=== PATIENT | male | born 1945 | race Caucasian/White ===

== ENCOUNTER 2017-09-17 12:23 | Emergency (ER) | payer MEDICARE, OTHER ==
[~2017-09-17] VITALS: Ht 182.9 cm; Wt 67.0 kg
[~2017-09-17 12:23] MED LIST: HYDR-3533 PO; PROT40TA PO; TAB-TAB PO
[2017-09-17 12:28] VITALS: BP 119/69; PULSE 84; RESP 18; TEMP 97; O2SAT 96
[2017-09-17] MEDS ORDERED: SODIUM CHLOR 0.9% 1000 ML INJ 1,000 ML IV ONE (13:30)
--- NOTE | 2017-09-17 13:34 | PD ---
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 He has a history of rectal cancer. He had a diverting ileostomy at one time. He has had several surgeries with Dr. Calle. He has had radiation and chemo prior to the surgery in February or March 2014. In December 2014 he had surgery with Dr. Calle and had a ileostomy in place. In March 2015 he had closure of the ileostomy and placement of a tube gastrostomy. At the time of that surgery was thought he might of had a bowel obstruction. The tube gastrostomy has been in place since then. He was supposed to be removed about 3 weeks after the surgery with the patient says he had decided not to have further care. He has had the tube in place since then. He says that this morning about a foot of the tube broke off. Initially there was a small amount of white fluid that came out. Since then there have been 2 or 3 episodes of brownish fluid coming out which has been more forceful. He says he is feeling weak. PFSH Past Medical History Hx Anticoagulant Therapy: No Cancer: Yes (RECTAL) Cardiovascular Problems: No Chemotherapy: Yes (FEB 2014) Cerebrovascular Accident: No Diabetes: No Diminished Hearing: No Endocrine: No Gastrointestinal Disorders: Yes (REFLUX AT NIGHT) Genitourinary: No Hepatitis: No Hiatal Hernia: No Immune Disorder: No Medical other: Yes (right inguinal hernia) Musculoskeletal: No Neurologic: No Psychiatric: No Reproductive: No Respiratory: No Immunizations Current: No Radiation Therapy: Yes (STOPPED MAR 2014) Thyroid Disease: No Influenza Vaccination: No Past Surgical History Abdominal Surgery: Yes (ILEOSTOMY DECEMBER 2014) AICD: No Cardiac Surgery: No Ear Surgery: No Endocrine Surgery: No Eye Surgery: No Genitourinary Surgery: No Gynecologic Surgery: No Joint Replacement: No Oral Surgery: No Pacemaker: No Thoracic Surgery: No Social History Alcohol Use: Yes (OCCASIONAL) Tobacco Use: No (quit in 1997) Substance Use: No Allergies-Medications (Allergen,Severity, Reaction): Coded Allergies: acetaminophen (Unverified Allergy, Severe, 09/17/17) hydrocodone (Unverified Allergy, Severe, Rash, 09/17/17) *MDRO Multi-Drug Resistant Organism (Verified Adverse Reaction, Unknown, ) MRSA PCR Screen positive 12/29/14. Reported Meds & Prescriptions Reported Meds & Active Scripts Active No Active Prescriptions or Reported Medications Review of Systems General / Constitutional: No: Fever, Chills Eyes: No: Diploplia, Blurred Vision HENT: No: Headaches, Vertigo Cardiovascular: No: Chest Pain or Discomfort, Palpitations Respiratory: No: Cough, Shortness of Breath Gastrointestinal: No: Nausea, Vomiting Skin: No Rash, No Itching Neurologic: Positive: Weakness Endocrine: No: Heat Intolerance Hematologic/Lymphatic: No: Easy Bruising Physical Exam Narrative GENERAL: Thin male SKIN: Focused skin assessment warm/dry. HEAD: Atraumatic. Normocephalic. EYES: Pupils equal and round. No scleral icterus. No injection or drainage. ENT: No nasal bleeding or discharge. Mucous membranes pink and moist. NECK: Trachea midline. No JVD. CARDIOVASCULAR: Regular rate and rhythm. No murmur appreciated. RESPIRATORY: No accessory muscle use. Clear to auscultation. Breath sounds equal bilaterally. GASTROINTESTINAL: Abdomen soft, non-tender, nondistended. There is a brown circular to coming out of the left midabdomen. There is some brownish material at the base small amount of brownish material coming up the end of the tube hepatic and splenic margins not palpable. MUSCULOSKELETAL: No obvious deformities. No clubbing. No cyanosis. No edema. NEUROLOGICAL: Awake and alert. No obvious cranial nerve deficits. Motor grossly within normal limits. Normal speech. PSYCHIATRIC: Appropriate mood and affect; insight and judgment normal. Data Data Last Documented VS Vital Signs Date Time Temp Pulse Resp B/P (MAP) Pulse Ox O2 Delivery O2 Flow Rate FiO2 09/17/17 12:28 97.0 84 18 119/69 (86) 96 Orders Orders Complete Blood Count With Diff (09/17/17 13:27) Comprehensive Metabolic Panel (09/17/17 13:27) Sodium Chlor 0.9% 1000 Ml Inj (Ns 1000 M (09/17/17 13:30) Labs Laboratory Tests Test 09/17/17 13:45 White Blood Count 3.4 TH/MM3 Red Blood Count 4.36 MIL/MM3 Hemoglobin 12.7 GM/DL Hematocrit 38.9 % Mean Corpuscular Volume 89.2 FL Mean Corpuscular Hemoglobin 29.1 PG Mean Corpuscular Hemoglobin Concent 32.6 % Red Cell Distribution Width 14.2 % Platelet Count 186 TH/MM3 Mean Platelet Volume 8.4 FL Neutrophils (%) (Auto) 59.7 % Lymphocytes (%) (Auto) 17.3 % Monocytes (%) (Auto) 15.7 % Eosinophils (%) (Auto) 4.9 % Basophils (%) (Auto) 2.4 % Neutrophils # (Auto) 2.0 TH/MM3 Lymphocytes # (Auto) 0.6 TH/MM3 Monocytes # (Auto) 0.5 TH/MM3 Eosinophils # (Auto) 0.2 TH/MM3 Basophils # (Auto) 0.1 TH/MM3 CBC Comment DIFF FINAL Differential Comment Blood Urea Nitrogen 12 MG/DL Creatinine 0.87 MG/DL Random Glucose 113 MG/DL Total Protein 8.9 GM/DL Albumin 3.6 GM/DL Calcium Level 9.1 MG/DL Alkaline Phosphatase 75 U/L Aspartate Amino Transf (AST/SGOT) 28 U/L Alanine Aminotransferase (ALT/SGPT) 14 U/L Total Bilirubin 0.7 MG/DL Sodium Level 140 MEQ/L Potassium Level 4.0 MEQ/L Chloride Level 106 MEQ/L Carbon Dioxide Level 25.8 MEQ/L Anion Gap 8 MEQ/L Estimat Glomerular Filtration Rate 87 ML/MIN MDM Medical Decision Making Medical Screen Exam Complete: Yes Emergency Medical Condition: Yes Medical Record Reviewed: Yes Differential Diagnosis Differential includes fracture gastrostomy tube, dehydration, rectal cancer Narrative Course I discussed the case with Dr. Calle who has been the patient's physician though the patient has not been compliant has not has not seen HIM for several years. He recommends removing the tube as it is not being used. The tube was removed with traction. It did not require much force and the tube came out easily. Skin site will be bandaged. We did check lab work and gave him a liter of fluid. He is stable for discharge. Dr. Calle has indicated he would like to follow-up with the patient and I have advised the patient of this. Diagnosis Primary Impression: Attention to gastrostomy tube Scripts No Active Prescriptions or Reported Meds Disposition: 01 DISCHARGE HOME Condition: Stable Tank Maciel MD September 17, 2017 13:34
[2017-09-17 13:51] LABS: BASOPHIL # 0.1 TH/MM3 (0-0.2); BASOPHIL % 2.4 % (0.0-2.0); EOSINOPHIL # 0.2 TH/MM3 (0-0.4); EOSINOPHIL % 4.9 % (0.0-4.0); HEMATOCRIT 38.9 % (39.0-51.0); HEMOGLOBIN 12.7 GM/DL (13.0-17.0); LYMPH % 17.3 % (9.0-44.0); LYMPHOCYTE # 0.6 TH/MM3 (1.0-4.8); MEAN CELL VOLUME 89.2 FL (80.0-100.0); MEAN CORPUSCULAR HEMOGLOBIN 29.1 PG (27.0-34.0); MEAN CORPUSCULAR HGB CONC 32.6 % (32.0-36.0); MEAN PLATELET VOLUME 8.4 FL (7.0-11.0); MONO % 15.7 % (0.0-8.0); MONOCYTE # 0.5 TH/MM3 (0-0.9); NEUT % 59.7 % (16.0-70.0); PLATELET COUNT 186 TH/MM3 (150-450); RED BLOOD COUNT 4.36 MIL/MM3 (4.50-5.90); RED CELL DISTRIBUTION WIDTH 14.2 % (11.6-17.2); WHITE BLOOD COUNT 3.4 TH/MM3 (4.0-11.0)
[2017-09-17 14:00] LABS: CHLORIDE 106 MEQ/L (98-107); SODIUM (NA) 140 MEQ/L (136-145)
[2017-09-17 14:04] LABS: CALCIUM 9.1 MG/DL (8.5-10.1)
[2017-09-17 14:05] LABS: ALBUMIN 3.6 GM/DL (3.4-5.0); BICARBONATE 25.8 MEQ/L (21.0-32.0); BLOOD UREA NITROGEN 12 MG/DL (7-18); GLUCOSE,RANDOM 113 MG/DL (74-106)
[2017-09-17 14:08] LABS: ALT (GPT) 14 U/L (12-78); AST (GOT) 28 U/L (15-37); CREATININE 0.87 MG/DL (0.60-1.30); GLOMERULAR FILTRATION RATE 87 ML/MIN (>89)
[2017-09-17 14:09] LABS: TOTAL BILIRUBIN ADULT 0.7 MG/DL (0.2-1.0); TOTAL PROTEIN 8.9 GM/DL (6.4-8.2)
[2017-09-17 14:11] LABS: ALKALINE PHOSPHATASE 75 U/L (45-117)
[2017-09-17] MEDS ORDERED: PERM5CRE11 TOPICAL (14:53)
== END 2017-09-17 15:09 | disposition home or self-care (01) ==
LOC: PHED 12:23
DX: Z43.1 Encounter for attention to gastrostomy (principal); K21.9 Gastro-esophageal reflux disease without esophagitis; K40.90 Unilateral inguinal hernia, without obstruction or gangrene, not specified as recurrent; Z85.048 Personal history of other malignant neoplasm of rectum, rectosigmoid junction, and anus; Z87.891 Personal history of nicotine dependence; Z91.19 Patient's noncompliance with other medical treatment and regimen
CPT/HCPCS: 80053; 85025; 96360; 99283; J7030

== ENCOUNTER 2018-02-09 16:38 | Inpatient (IN) ==
[2018-02-09] MEDS ORDERED: Morphine Sulfate Inj 2 MG/ML Vial IV.PUSH ONE (17:21)
[2018-02-09] MEDS ORDERED: Sod Chloride 0.9% Inj 1,000 ML IV.SIG ONE (17:21)
--- NOTE | 2018-02-09 17:29 | ED ---
HPI General Chief complaint: Abdominal Pain Stated complaint: abd pain/diarrhea Time Seen by Provider: 02/09/18 17:09 Source: patient Mode of arrival: ambulatory Limitations: no limitations History of Present Illness HPI Narrative: Patient is a 72-year-old male who presents to the emergency department for nausea, vomiting, diarrhea, and intermittent abdominal pain. The patient states his symptoms started on Friday with nausea and vomiting. The patient then developed abdominal distention, abdominal cramping, and diarrhea. The patient describes diarrhea as loose, watery, brown, without any visible blood. The patient does have a history of similar symptoms when he was undergoing chemotherapy and radiation therapy for rectal cancer. The patient does have a history of large abdominal surgery for removal of part of the rectum and colostomy which has subsequently been reversed. The patient also states he had a feeding tube placed at that time which was removed earlier this year. The patient states the fistula is currently healing. He does note some subjective chills and fever. He does complain of mild nausea, last episode of vomiting was yesterday. The abdominal pain is intermittent, crampy, and associated with a bowel movement. The patient denies any associated chest pain or shortness of breath. MD complaint: nausea, vomiting, diarrhea and abdominal pain Onset (ago): day(s) Description of Vomiting: watery Description of Diarrhea: watery Associated Abdominal Pain: Yes Location of pain: diffuse Radiation: diffuse Severity: moderate Severity scale (1-10): 4 Quality: cramping Pain Consistency: intermittent Relieving factors: none Exacerbating factors: bowel movement Associated symptoms: loss of appetite, nausea/vomiting and bloating Related Data Home Medications Medication Instructions Recorded Confirmed No Known Home Medications 02/09/18 02/09/18 Allergies Allergy/AdvReac Type Severity Reaction Status Date / Time acetaminophen Allergy Severe Rash Verified 02/09/18 16:54 hydrocodone Allergy Severe Rash Verified 02/09/18 16:54 *MDRO Multi-Drug Resistant AdvReac Unknown Agitation Uncoded 02/09/18 16:54 Organism Review of Systems ROS: all other systems reviewed are negative PMFSH Social History Social History Substance History: No History of Abuse Second Hand Smoke Exposure: No Smoking Status: Former smoker How Often Do You Have a Drink Containing Alcohol: 2 to 4 times a month Recent Travel in [facility] within the Last 8 Weeks: No Recent Out of Country Travel within the Last 8 Weeks: No Immunization History Tetanus Immunization: Unsure Hx Influenza Vaccine This Season: No Exam Narrative Exam Narrative: GENERAL: Awake, alert, pleasant 72-year-old male who appears his stated age and is in no acute respiratory distress. SKIN: Focused skin assessment warm/dry. HEAD: Atraumatic. Normocephalic. EYES: Pupils equal and round. No scleral icterus. No injection or drainage. ENT: No nasal bleeding or discharge. Slightly dry mucous membranes. NECK: Trachea midline. No JVD. CARDIOVASCULAR: Regular rate and rhythm. No murmur appreciated. RESPIRATORY: No accessory muscle use. Clear to auscultation. Breath sounds equal bilaterally. GASTROINTESTINAL: Abdomen reveals a slightly distended abdomen with a well- healed transverse incisional scar. Fistula in the upper aspect of the abdomen which is closing, no obvious drainage. Mild tenderness, no rebound tenderness. MUSCULOSKELETAL: No obvious deformities. No clubbing. No cyanosis. No edema. NEUROLOGICAL: Awake and alert. No obvious cranial nerve deficits. Motor grossly within normal limits. Normal speech. PSYCHIATRIC: Appropriate mood and affect; insight and judgment normal. Course Initial Documented Vital Signs Temperature 98.0 F 02/09/18 16:54 Pulse Rate 79 02/09/18 16:54 Respiratory Rate 18 02/09/18 16:54 Blood Pressure 115/77 02/09/18 16:54 Pulse Oximetry 98 02/09/18 16:54 Last Documented Vital Signs Temperature 98.0 F 02/09/18 16:54 Pulse Rate 67 02/09/18 21:50 Respiratory Rate 18 02/09/18 21:50 Blood Pressure 118/68 02/09/18 21:50 Pulse Oximetry 99 02/09/18 21:50 Medical Decision Making [facility] Narrative Medical decision making narrative: IV was established, labs are drawn and sent, and the patient was placed on cardiac telemetry monitoring and continuous pulse oximetry monitoring. The patient was administered morphine, Zofran, Bentyl, and IV fluids. C. difficile PCR from stool was ordered. CT of the abdomen and pelvis with IV and oral contrast was ordered. Follow-up of pending labs and CT and patient disposition CT abdomen and pelvis shows bowel obstruction with dilated intestine to the area of anastomosis. Patient's abdomen is firm and distended but minimally tender to direct palpation. Patient's case discussed with on-call colorectal surgeon for Dr. Calle who is the patient's colorectal surgeon. Per Dr. Lopez would like patient transferred to [facility] is aware patient is having NG tube placed like patient on maintenance fluids at 150 cc an hour Medical Screen Exam Complete: Yes Emergency Medical Condition: Yes Differential Diagnosis Differential Diagnosis: Differential diagnosis includes colitis, gastritis, enteritis, C. difficile, dehydration, electrolyte abnormality, chronic pancreatitis, viral syndrome. Medical Records Medical records reviewed: Yes I reviewed the patient's medical records. Lab Data Lab results reviewed: Yes I reviewed the patient's lab results. Result diagrams: 02/09/18 17:34 02/09/18 17:34 Lab Results 02/09/18 02/09/18 Range/Units 17:34 17:34 CBC w Diff Auto diff final WBC 7.9 (4.0-11.0) th/mm3 RBC 4.10 L (4.50-5.90) mil/mm3 Hgb 12.6 L (13.0-17.0) gm/dL Hct 37.3 L (39.0-51.0) % MCV 90.9 (80.0-100.0) fL MCH 30.8 (27.0-34.0) pg MCHC 33.9 (32.0-36.0) % RDW 15.5 (11.6-17.2) % Plt Count 313 (150-450) th/mm3 MPV 8.6 (7.0-11.0) fL Neut % (Auto) 76.7 H (16.0-70.0) % Lymph % (Auto) 9.2 (9.0-44.0) % Borden % (Auto) 11.3 H (0.0-8.0) % Eos % (Auto) 0.6 (0.0-4.0) % Baso % (Auto) 2.2 H (0.0-2.0) % Neut # (Auto) 6.1 (1.8-7.7) th/mm3 Lymph # (Auto) 0.7 L (1.0-4.8) th/mm3 Borden # (Auto) 0.9 (0.0-0.9) th/mm3 Eos # (Auto) 0.0 (0.0-0.4) th/mm3 Baso # (Auto) 0.2 (0.0-0.2) th/mm3 WBC Differential . Differential Comment . Sodium 136 (136-145) meq/L Potassium 3.1 L (3.5-5.1) meq/L Chloride 103 (98-107) meq/L Carbon Dioxide 22.4 (21.0-32.0) meq/L Anion Gap 11 (5-15) meq/L BUN 17 (7-18) mg/dL Creatinine 1.10 (0.60-1.30) mg/dL Estimated GFR 66 L (>89) mL/min Random Glucose 113 H (74-106) mg/dL Calcium 8.7 (8.5-10.1) mg/dL Total Bilirubin 0.7 (0.2-1.0) mg/dL AST 34 (15-37) U/L ALT 15 (12-78) U/L Alkaline Phosphatase 78 (45-117) U/L Total Protein 9.3 H (6.4-8.2) g/dL Albumin 3.4 (3.4-5.0) g/dL Lipase 55 L (73-393) U/L Imaging Data Radiologist's impression: Abdomen/Pelvis CT 02/09/18 17:21 CONCLUSION: 1. Diffuse colonic distention with air-fluid levels down to the rectal anastomosis level. Differential considerations include colonic ileus versus obstruction. 2. There are only minimally prominent loops of small bowel measuring up to 3 cm. 3. Multiple new pulmonary nodular opacities measuring up to 12 mm suggesting possible metastatic disease. 4. Stable 4.7 cm distal abdominal aortic aneurysm. Discharge Plan Discharge Disposition Patient Disposition: 30 Still Patient Discharge Condition Condition: Stable Discharge Details Diagnosis: Bowel obstruction, Hypokalemia Physicians Team ED Provider: Eduardo Chris Primary Care Provider: UNKNOWN, Attending Provider: Shawn Melendez Status ED Status: Left Department Discharge Information Discharge Date/Time: 02/10/18 02:20
[2018-02-09 17:59] LABS: Chloride 103 meq/L (98-107); Potassium 3.1 meq/L (3.5-5.1); Sodium 136 meq/L (136-145)
[2018-02-09 18:02] LABS: Albumin 3.4 g/dL (3.4-5.0); Anion Gap 11 meq/L (5-15); Calcium 8.7 mg/dL (8.5-10.1); Carbon Dioxide 22.4 meq/L (21.0-32.0); Glucose,Random 113 mg/dL (74-106); Lipase 55 U/L (73-393)
[2018-02-09 18:03] LABS: Blood Urea Nitrogen 17 mg/dL (7-18)
[2018-02-09 18:05] LABS: Alanine Aminotransferase 15 U/L (12-78); Aspartate Aminotransferase 34 U/L (15-37); Glomerular Filtration Rate 66 mL/min (>89)
[2018-02-09 18:07] LABS: Baso # (Auto) 0.2 th/mm3 (0.0-0.2); Baso % (Auto) 2.2 % (0.0-2.0); Eos % (Auto) 0.6 % (0.0-4.0); Hematocrit 37.3 % (39.0-51.0); Hemoglobin 12.6 gm/dL (13.0-17.0); Lymph # (Auto) 0.7 th/mm3 (1.0-4.8); Lymph % (Auto) 9.2 % (9.0-44.0); Mean Corpuscular HGB Conc 33.9 % (32.0-36.0); Mean Corpuscular Hemoglobin 30.8 pg (27.0-34.0); Mean Corpuscular Volume 90.9 fL (80.0-100.0); Mean Platelet Volume 8.6 fL (7.0-11.0); Mono # (Auto) 0.9 th/mm3 (0.0-0.9); Mono % (Auto) 11.3 % (0.0-8.0); Neut # (Auto) 6.1 th/mm3 (1.8-7.7); Neut % (Auto) 76.7 % (16.0-70.0); Platelet Count 313 th/mm3 (150-450); Red Cell Distribution Width 15.5 % (11.6-17.2); Total Protein 9.3 g/dL (6.4-8.2); White Blood Count 7.9 th/mm3 (4.0-11.0)
[2018-02-09 18:08] LABS: Alkaline Phosphatase 78 U/L (45-117)
[2018-02-09] MEDS ORDERED: Diatrizoate Meglum/Diatrizoate Sod Liq 9 ML UDC ONE (18:15)
--- NOTE | 2018-02-09 21:10 | CT ---
EXAM DATE: 02/09/2018 8:24 PM EDT AGE/SEX: 72 years / Male INDICATIONS: Abdominal pain. Distention. Diarrhea. CLINICAL DATA: This is the patient's initial encounter. Patient reports that signs and symptoms have been present for 4 - 6 days and indicates a pain score of 7/10. MEDICAL/SURGICAL HISTORY: Carcinoma, rectal. . Rectal. ORAL CONTRAST: Prescribed oral contrast ingested. RADIATION DOSE: 5.66 CTDI (mGy) COMPARISON: [facility] [place], CT ABDOMEN & PELVIS W CONTRAST, 02/24/2015. . TECHNIQUE: Multiple contiguous axial images were obtained through the abdomen and pelvis following b olus infusion of 100 ml Omnipaque 350 (iohexol) nonionic water-soluble contrast as a single exam do se. Prescribed oral contrast ingested. Using automated exposure control and adjustment of the mA and /or kV according to patient size, radiation dose was kept as low as reasonably achievable to obtain o ptimal diagnostic quality images. DICOM format image data is available electronically for review and comparison. FINDINGS: Lower Lungs: There are multiple new nodular opacities in the lower lungs, the largest of which is in the anterior costophrenic angle on the right side measuring 12 mm. No evidence of pleural effusion. Liver: The liver has a homogeneous density without space-occupying lesion. There is no dilation of th e biliary tree. No calcified gallstones. Spleen: Homogeneous density without enlargement. Pancreas: Unremarkable without mass or calcification. Kidneys: Normal in size and shape. No evidence of mass or hydronephrosis. Stable left upper pole topher al cyst. Adrenal Glands: Unremarkable. Aorta: Stable saccular infrarenal abdominal aortic aneurysm measuring 4.7 cm. Bowel/Mesentery: Minimally prominent loops of small bowel measuring up to 3 cm in diameter. Oral con trast passes through to the distal small bowel. There is distention of the entire colon with air-flui d levels seen throughout the colon and measuring up to 8.5 cm in length. The colonic distention exten ds down to the anastomosis suture at the rectum. Abdominal Wall: Intact. Retroperitoneum: No evidence of adenopathy in the retrocrural, para-aortic, or deep pelvic regions. Bladder: Contours are smooth. Reproductive Organs: No abnormal masses or calcifications seen. Inguinal: The inguinal region is unremarkable without evidence of adenopathy. Bony Structures: Unremarkable. CONCLUSION: 1. Diffuse colonic distention with air-fluid levels down to the rectal anastomosis level. Differenti al considerations include colonic ileus versus obstruction. 2. There are only minimally prominent loops of small bowel measuring up to 3 cm. 3. Multiple new pulmonary nodular opacities measuring up to 12 mm suggesting possible metastatic dis ease. 4. Stable 4.7 cm distal abdominal aortic aneurysm. Electronically signed by: Diogenes Faulkner MD 02/09/2018 9:09 PM EDT
[2018-02-09] MEDS ORDERED: Sod Chloride 0.9% Inj 1,000 ML IV.SIG SCH (21:45)
[2018-02-09] MEDS ORDERED: Morphine Inj 4 MG/ML Vial IV.PUSH ONE (22:31)
[2018-02-09] MEDS: KCL 20 mEq/D5W/NaCl 0.9% Inj 1,000 ML IV.CONT SCH (22:47)
[2018-02-10] MEDS: KCL 20 mEq/D5W/NaCl 0.9% Inj 1,000 ML IV.CONT SCH ×4 (03:39→20:56)
--- NOTE | 2018-02-10 14:42 | MH ---
cc: Shawn Melendez MD, John T MD Salter, Brenda H MD DATE OF ADMISSION: 02/09/2018 CHIEF COMPLAINT: Abdominal distention. HISTORY OF PRESENT ILLNESS: This patient is well known to me. He comes in this time with abdominal distention and he said that over the weekend he had severe diarrhea, so he took some Lomotil and it stopped him up. He got more distended. He came to the emergency department last night in [place], had a CT scan showing primarily colonic distention right down to his area of his low rectal anastomosis. The patient says that he has been having liquid stools before and after then, but just not a large amount. His abdominal distention remains. The ER doctor, Eduardo Chris, talked to Dr. Soto last night and the patient was transferred up from [place] [facility] to here anticipating surgery. The patient is a long-term patient of mine, but however, he has not followed up. His problems started in late 2013. He was diagnosed with a rectal cancer. He underwent radiation therapy, chemotherapy and then became quite ill, had pneumonia was in rehab for a while and then was referred to me in the spring. At that time, we recommended a low anterior resection and we proceeded with that in mid 2014. Probably in the summer 2014, we did a low anterior resection with a diverting loop ileostomy. At that time, he was doing well, but he came back into the hospital several times with dehydration from his ileostomy outputs. He then came in about 10 weeks postop with what seemed like a small-bowel obstruction, he underwent exploratory laparotomy and he did indeed have a small-bowel obstruction with omentum stuck over a loop of small bowel requiring a small bowel resection and then he had closure of his ileostomy as well. He was quite emaciated at that time, and we went ahead and placed a gastrostomy tube. He was discharged from the hospital sometime around March or April of 2015, showed up back in the hospital in May of 2015 with some dehydration, again emaciated with a functioning gastrostomy tube. The patient was lost to followup until September of this year and he showed up in the emergency department after calling my office with his gastrostomy tube still present, not being used. He said that he was fearful of having it removed and therefore did not have it removed for about [address] Tank Kilpatrick removed it in the emergency department in September and it has taken several months, but the gastrostomy tube site has finally healed. I have given the patient multiple slips for a CEA and tried to discuss doing rectal exams and/or sigmoidoscopy and/or colonoscopies with him and he has not scheduled any of these or done any of his lab work. The patient now presents with the above-mentioned problems. The CT scan also seemed to show metastatic disease in his lungs. Past medical history, family history, social history and review of systems as above. PHYSICAL EXAMINATION: GENERAL: Well-developed, thin male in mild distress with abdominal distention. SKIN: Warm and dry. HEENT: Extraocular muscles intact. NECK: Supple. CHEST: Clear. HEART: S1, S2 is heard. No murmurs or gallops. ABDOMEN: Mildly to moderately distended, some tympany. There is discomfort on deep palpation due to the air distention of the colon. RECTAL: Reveals a copious amount of stool in his diaper. I am able to do a digital rectal exam and anteriorly it feels as if he has recurrent rectal cancer. The anastomosis is open and I am able to go through this area with a large amount of liquid stool and gas passing. EXTREMITIES: Range of motion within normal limits. NEUROLOGIC: Grossly normal. 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 PLAN: I will plan on a flexible sigmoidoscopy on him tomorrow morning and see if we can get an idea of whether he is definitely having a recurrence here and whether he has metastatic disease in his lungs and then probably plan on diversion, either with ileostomy or colostomy in the next couple of days if needed. MD BRET Hamilton/jammie , 01:32 PM , 01:41 PM
[2018-02-10] MEDS ORDERED: Chlorhexidine Gluconate 2% 1 Pack (2 Cloths) TOPICAL ONE (22:10)
[2018-02-10] MEDS ORDERED: Sodium Chlor 0.9% Inj 500 ML IV.SIG SCH (23:00)
[2018-02-11] MEDS: KCL 20 mEq/D5W/NaCl 0.9% Inj 1,000 ML IV.CONT SCH ×2 (01:32→10:29)
[2018-02-11 06:50] LABS: Baso % (Auto) 0.6 % (0.0-2.0); Eos # (Auto) 0.1 th/mm3 (0.0-0.4); Eos % (Auto) 0.9 % (0.0-4.0); Hematocrit 31.4 % (39.0-51.0); Hemoglobin 10.6 gm/dL (13.0-17.0); Lymph % (Auto) 14.1 % (9.0-44.0); Mean Corpuscular HGB Conc 33.8 % (32.0-36.0); Mean Corpuscular Hemoglobin 28.4 pg (27.0-34.0); Mean Corpuscular Volume 83.9 fL (80.0-100.0); Mono # (Auto) 0.7 th/mm3 (0.0-0.9); Mono % (Auto) 10.6 % (0.0-8.0); Neut % (Auto) 73.8 % (16.0-70.0); Platelet Count 175 th/mm3 (150-450); Red Blood Count 3.74 mil/mm3 (4.50-5.90); Red Cell Distribution Width 14.7 % (11.6-17.2); White Blood Count 6.8 th/mm3 (4.0-11.0)
[2018-02-11 06:53] LABS: Anion Gap 6 meq/L (5-15); Blood Urea Nitrogen 14 mg/dL (7-18); Calcium 8.1 mg/dL (8.5-10.1); Carbon Dioxide 31.4 meq/L (21.0-32.0); Chloride 103 meq/L (98-107); Glomerular Filtration Rate Greater Than 89 mL/min (>89); Glucose,Random 102 mg/dL (74-106); Potassium 3.8 meq/L (3.5-5.1); Sodium 140 meq/L (136-145)
[2018-02-11 06:57] LABS: Carcinoembryonic Antigen 1.4 ng/mL (0.2-5.0)
[2018-02-11] MEDS ORDERED: Lidocaine PF 1% Inj 5 ML Syringe OTHER ONE (07:33)
[2018-02-11] MEDS ORDERED: Phenylephrine/NS 1000 MCG/10ML Syringe IV.PUSH ONE (07:33)
--- NOTE | 2018-02-11 08:22 | P.PNCS ---
Subjective Interval history: Colonoscopy with possible rectal cancer recurrence. Multiple biopsies. This is causing partial obstruction. Decompressed. Objective Result Diagrams: 02/11/18 05:26 02/11/18 05:26 Objective Remarks: Abd: mild tympany decompressed with colonoscope. Rectal: Very low anastamosis with probable recurrent rectal cancer. Lumen narrow but open Assessment and Plan - Plan Await biopsies CEA WNL Chest CT for possible lung mets FLD Possibly get Oncology involved depending on workup Probably will eventually need Ileostomy or proximal colostomy. This area in rectum does not feel resectable
--- NOTE | 2018-02-11 09:07 | MR ---
cc: Shawn Melendez MD DATE: 02/11/2018 PREOPERATIVE DIAGNOSIS: Recurrent rectal cancer. POSTOPERATIVE DIAGNOSIS: Recurrent rectal cancer. PROCEDURE PERFORMED: Colonoscopy and biopsy of rectal cancer. ANESTHESIA: Monitored anesthesia care. SURGEON: Shawn Melendez MD ESTIMATED BLOOD LOSS: Minimal. OPERATIVE FINDINGS: This patient is well known to me. He comes in with a partial colon obstruction based on CT scan and clinical findings. The patient underwent a very low anterior resection after radiation therapy, chemotherapy 3 years ago, and then underwent closure of his ileostomy just about 3 years ago. At that time, he had a gastrostomy tube placed, but the patient never came back to my office and about 4 months ago showed up in the emergency room with a gastrostomy tube still in place and the emergency room physician removed it after speaking to me. 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 The fistula is basically closed at this point, but he comes in this time with obstructive symptoms. The patient has not allowed me to do a rectal exam while in the office, nor has he obtained any of his laboratory data, such as CEA. Upon doing a rectal exam on him yesterday on admission, he has what feels like a recurrent rectal cancer around the area of his anastomosis. His anastomosis is quite low. It allows my finger through the anastomosis and a large amount of stool and air was drained. This procedure was done unprepped as a sigmoidoscopy to biopsy this area. However, because of the liquid nature of the stool, I was able to go all the way around the colon and there were no gross mass lesions present. I was able to decompress his colon and aspirate fluid and air. Around the anastomosis, it appeared as if there was recurrent carcinoma circumferentially frondular-like in nature and multiple biopsies were taken. OPERATIVE TECHNIQUE: The patient was placed on the table in lithotomy position, given monitored anesthesia care, and the colonoscope was introduced through the anal canal after digital rectal exam. It was taken through the area of the anastomosis around the descending colon, transverse colon, ascending colon to the cecum. There was a large amount of fluid. There was no solid stool in the colon and there was a fair amount of air, which was aspirated. The patient has been having bowel motions prior to this. The scope was sequentially withdrawn, sequentially looking at the mucosa getting a poor look at the mucosal detail, but there were no mass lesions up in the colon itself. The lesion at the anastomosis is in the very lower part of the rectum and it was frondular, soft, and multiple biopsies were taken and then the scope was removed. The appearance was of recurrent rectal cancer. The patient tolerated the procedure well and left the GI lab in good condition. Shawn Melendez MD JTT/sv , 08:08 AM , 08:14 AM
[2018-02-11] MEDS: KCL 20 mEq/D5W/LR Inj 1,000 ML IV.CONT SCH (09:45)
--- NOTE | 2018-02-11 09:57 | CT ---
EXAM DATE: 02/11/2018 9:10 AM EDT AGE/SEX: 72 years / Male INDICATIONS: Rectal cancer, evaluation for metastatic disease. CLINICAL DATA: This is the patient's initial encounter. Patient reports that signs and symptoms have been present for 1 day and indicates a pain score of 0/10. MEDICAL/SURGICAL HISTORY: Carcinoma, rectal. . Rectal surgery. RADIATION DOSE: 6.26 CTDI (mGy) COMPARISON: [facility], CT CHEST W/ CONTRAST, 08/08/2014. . TECHNIQUE: Multiple contiguous axial images were obtained through the chest during bolus infusion of 68 ml Omnipaque 350 (iohexol) nonionic water-soluble contrast as a single exam dose. Images were obtained in suspended respiration using multiple row detector helical technique. Using automated exp osure control and adjustment of the mA and/or kV according to patient size, radiation dose was kept a s low as reasonably achievable to obtain optimal diagnostic quality images. DICOM format image data is available electronically for review and comparison. FINDINGS: Lung: There are multiple primarily right-sided parenchymal nodules measuring between 2 to 10 mm. The se are primarily isolated to the right middle and lower lobes although there is a single 4 mm nodule in the lingula adjacent the fissure. Pleura: There is a trace simple appearing right-sided pleural effusion. Mediastinum: Scattered subcentimeter mediastinal and right hilar nodes do not meet strict CT size cr iteria. Heart is unremarkable without significant pericardial effusion. There are moderate coronary a rtery calcifications. The proximal esophagus is significantly dilated and fluid-filled measuring up t o 3.6 cm. This is similar to previous exam. Osseous Structures: No abnormal focal lytic or blastic bony lesions. Mild degenerative changes of the lower thoracic spine with slightly increased kyphosis. Soft Tissues: Soft tissues are unremarkable. No significant axillary adenopathy. Other: 3 cm cyst in the superior pole of the left kidney. Trace perisplenic fluid. CONCLUSION: 1. There are multiple primarily right-sided lung nodules measuring between 2 to 10 mm consistent wit h metastatic disease. There is at least one 4 mm nodule in the lingula. 2. Trace simple appearing right-sided pleural effusion. 3. Scattered subcentimeter and right hilar lymph nodes which do not meet strict size criteria but ar e notable in number in light of additional findings. 4. Stable dilated fluid-filled proximal esophagus. Electronically signed by: Dayday Guaraddo MD 02/11/2018 9:56 AM EDT
--- NOTE | 2018-02-11 10:07 | XR ---
EXAM DATE: 02/11/2018 10:00 AM EDT AGE/SEX: 72 years / Male INDICATIONS: Partial rectal obstruction. Post colonoscopy. CLINICAL DATA: This is the patient's subsequent encounter. Patient reports that signs and symptoms h ave been present for 1 day and indicates a pain score of 2/10. MEDICAL/SURGICAL HISTORY: . Carcinoma, rectal. . Rectal. COMPARISON: [facility], CT ABDOMEN & PELVIS W CONTRAST, 02/09/2018. [facility], ABDOMEN FLAT & UPRIGHT, 015. . FINDINGS: Supine and upright views of the abdomen demonstrate gaseous distention of the entire colon similar to or slightly less severe than on the CT performed 2 days ago. The upright image demonstrates no signi ficant air-fluid level or free intraperitoneal air. No abnormal bowel dilatation is appreciated. Ther e is no organomegaly or concerning calcification. Excreted intravenous contrast is seen within the co llecting systems, ureters, and urinary bladder. Staple line is visualized in the inferior pelvis rela travon to bowel anastomosis. Lung bases are clear and bones demonstrate no acute abnormality. CONCLUSION: Persistent gaseous distention of the entire colon. It appears slightly decreased from the CT from 2 d ays ago. As documented previously, the level of caliber change extends to the inferior rectum or anus . Electronically signed by: Shawn Gamble MD 02/11/2018 10:06 AM EDT
--- NOTE | 2018-02-11 20:59 | ECG ---
Date Performed: 02/11/2018 Time Performed: 01:48:24 PTAGE: 72 years EKG: Sinus bradycardia Abnormal ECG Compared to PREVIOUS TRACING , rate slower DOCTOR: Akil Early Interpretating Date/Time 02/11/2018 20:58:43
[2018-02-12] MEDS: KCL 20 mEq/D5W/LR Inj 1,000 ML IV.CONT SCH (05:44)
[2018-02-12] MEDS: Polyethylene Glycol 3350 17 GM Packet PO SCH (08:48)
--- NOTE | 2018-02-12 10:31 | XR ---
EXAM DATE: 02/12/2018 12:00 AM EDT AGE/SEX: 72 years / Male INDICATIONS: F/u colonic distention. CLINICAL DATA: This is the patient's initial encounter. Patient reports that signs and symptoms have been present for 3 days and indicates a pain score of 3/10. MEDICAL/SURGICAL HISTORY: Carcinoma, rectal. . chemotherapy for rectal cancer and surgery COMPARISON: [facility] [place], ABDOMEN 2V FLAT & UPRIGHT, 02/11/2018. . FINDINGS: Gaseous distention of the colon remains similar in appearance to February 11. Surgical helga noted in the rectal region. No free air. No acute bony abnormality. CONCLUSION: Persistent gaseous distention of the colon similar to February 11. Electronically signed by: Luis North MD 02/12/2018 10:29 AM EDT
--- NOTE | 2018-02-12 13:08 | P.PNCS ---
Subjective Interval history: Stooling diarrhea and gas but intermittent. Discussed Mets in lungs and probable rectal recurrence and high grade partial obstruction. Will need diversion, pt will decide. I would prefer to do tomorrow. Objective Result Diagrams: 02/11/18 05:26 02/11/18 05:26 Objective Remarks: Abd: mild tympany Assessment and Plan - Plan Await biopsies CEA WNL Chest CT shows lung mets FLD Will eventually need Ileostomy . This area in rectum does not feel resectable
[2018-02-13] MEDS ORDERED: Chlorhexidine Gluconate 2% 1 Pack (2 Cloths) TOPICAL ONE (00:38)
[2018-02-13] MEDS ORDERED: Sodium Chlor 0.9% Inj 500 ML IV.SIG SCH (01:00)
[2018-02-13] MEDS: KCL 20 mEq/D5W/LR Inj 1,000 ML IV.CONT SCH ×3 (01:38→21:46)
[2018-02-13] MEDS: Polyethylene Glycol 3350 17 GM Packet PO SCH (08:25)
--- NOTE | 2018-02-13 15:35 | P.PNCS ---
Subjective Interval history: Pt seen at 0630 today. Pt has agreed to diverting colostomy or ileostomy Objective Result Diagrams: 02/11/18 05:26 02/11/18 05:26 Objective Remarks: Abd: mild tympany. Stooling. Assessment and Plan - Plan Biopsies show recurrent adenocarcinoma We will proceed with colostomy or ileostomy today. Pt agrees.
[2018-02-13] MEDS ORDERED: Zolpidem Tartrate 5 MG Tablet PO PRN (17:41)
[2018-02-13] MEDS ORDERED: Potassium Chlor 40 mEq Premix 40 MEQ/100 ML PIGGYBACK IV.SIG PRN (17:41)
[2018-02-13] MEDS ORDERED: *morphine SULFATE 10 MG/ML PERIprocedure ONLY ONE (18:00)
--- NOTE | 2018-02-13 18:00 | P.OP ---
- Preoperative Diagnosis (1) Rectal obstruction - Postoperative Diagnosis (1) Rectal obstruction Date of procedure: 02/13/18 Procedure: Exploratory lap,lysis adhesions,diverting loop transverse colostomy,closure of gastrocutaneous fistula,proctosigmoidoscopy Anesthesia: GETA Surgeon: Shawn Melendez MD Wall Taper: Dennis Kraft Estimated blood loss (mL): 50 Operation and Findings: High grade partial rectal obstruction
[2018-02-13] MEDS ORDERED: fentaNYL Citrate Inj 100 MCG/2 ML Ampul ONE (18:05)
[2018-02-13] MEDS ORDERED: Morphine Inj 4 MG/ML Vial ONE (18:06)
[2018-02-13] MEDS ORDERED: Naloxone Inj 0.4 MG/ML Vial IV.PUSH PRN (18:08)
[2018-02-13] MEDS ORDERED: Morphine Inj 30 MG/30 ML PCA.VIAL PCA ONE (18:08)
[2018-02-13 18:20] LABS: Baso # (Auto) 0.1 th/mm3 (0.0-0.2); Eos # (Auto) 0.1 th/mm3 (0.0-0.4); Eos % (Auto) 0.9 % (0.0-4.0); Hematocrit 35.6 % (39.0-51.0); Hemoglobin 11.7 gm/dL (13.0-17.0); Lymph # (Auto) 0.7 th/mm3 (1.0-4.8); Lymph % (Auto) 9.8 % (9.0-44.0); Mean Corpuscular HGB Conc 32.8 % (32.0-36.0); Mean Corpuscular Volume 91.4 fL (80.0-100.0); Mean Platelet Volume 8.7 fL (7.0-11.0); Mono % (Auto) 14.6 % (0.0-8.0); Neut # (Auto) 5.2 th/mm3 (1.8-7.7); Neut % (Auto) 73.7 % (16.0-70.0); Platelet Count 181 th/mm3 (150-450); Red Cell Distribution Width 15.9 % (11.6-17.2); White Blood Count 7.1 th/mm3 (4.0-11.0)
[2018-02-13] MEDS ORDERED: *Labetalol HCl Inj 100 MG/20 ML Vial PERIprocedural Use ONLY IV.PUSH ONE (18:22)
[2018-02-13 18:43] LABS: Anion Gap 10 meq/L (5-15); Blood Urea Nitrogen 4 mg/dL (7-18); Carbon Dioxide 26.6 meq/L (21.0-32.0); Chloride 102 meq/L (98-107); Glomerular Filtration Rate Greater Than 89 mL/min (>89); Glucose,Random 111 mg/dL (74-106); Sodium 139 meq/L (136-145)
[2018-02-13 19:01] LABS: Total Protein 6.9 g/dL (6.4-8.2)
[2018-02-13 19:08] LABS: Potassium 2.9 meq/L (3.5-5.1)
[2018-02-13] MEDS: Morphine Inj 30 MG/30 ML PCA.VIAL PCA PRN (19:14)
[2018-02-13] MEDS ORDERED: *morphine SULFATE 4 MG/ML PERIprocedure ONLY ONE (19:16)
[2018-02-13] MEDS: Potassium Chlor 20 mEq Premix 20 MEQ/100 ML PIGGYBACK IV.SIG PRN ×2 (19:29→23:21)
--- NOTE | 2018-02-13 20:43 | MP ---
cc: Shawn Melendez MD, John T MD Sorathia,Dannie Dejesus MD DATE OF OPERATION: 02/13/2018 PREOPERATIVE DIAGNOSIS: High-grade partial rectal obstruction due to recurrent rectal cancer. POSTOPERATIVE DIAGNOSIS: High-grade partial rectal obstruction due to recurrent rectal cancer. PROCEDURE PERFORMED: 1. Exploratory laparotomy, lysis of adhesions. 2. Diverting loop transverse colostomy. 3. Takedown and closure of gastrocutaneous fistula. 4. Proctosigmoidoscopy. ANESTHESIA: General endotracheal. SURGEON: Shawn Melendez MD FINISHER HAND: Dennis Kraft MD COMPLICATIONS: Dennis Kraft MD ESTIMATED BLOOD LOSS: 50 mL OPERATING TIME: 1 hour and 20 minutes. OPERATIVE FINDINGS: This patient is well known to me. He came into the hospital with a partial rectal obstruction several days, ago underwent partial colonoscopy and biopsy of his rectum and had recurrent rectal cancer. The patient underwent a very low anterior resection after radiation therapy and chemotherapy 3 years ago and then underwent closure of his ileostomy about 3 years ago. The patient had a long gap, almost 9 months between his radiation therapy and chemotherapy because he became ill after that and then his surgery was done. He had closure of his ileostomy and had a gastrostomy tube and then did not return to pr for almost 3 years with the gastrostomy tube still hanging out of his abdomen. 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 It was almost healed, but it has been irritated. Recently became obstructed with this recurrent rectal cancer and he was able to have stool loosely and have diarrhea, but this was an unresectable lesion and he was also found to have pulmonary metastases on CT scan. For this reason, so that he could receive nutrition and chemotherapy, a colostomy or ileostomy was advised. At surgery, he was found to have extensive abdominal adhesions as he had previously as well as very dilated ascending colon and transverse colon. He was decompressed with proctosigmoidoscopy examination with a large amount of air and stool. We were able to lyse adhesions and mobilize his transverse and ascending colon and bring it out through a right upper quadrant stoma site at his previous ileostomy site. OPERATIVE TECHNIQUE: The patient was placed on the table in the supine position. After adequate general endotracheal anesthesia, the legs were placed in the perineal lithotomy position and the abdomen and perineum were prepped and draped in the usual manner. A circular skin incision was made in the right upper quadrant, the site of his previous ileostomy hoping that his bowels were free and we could pull up a loop of colon or small bowel for diversion. However, he had extensive adhesions in the abdomen and a midline incision was made from the xiphoid down toward but not all the way to the pubis. Midline was entered and extensive lysis of adhesions was done, mobilizing the transverse colon and the ascending colon and the hepatic flexure. Once this was done, and the stoma site was made larger to allow passage of the colon, Dr. Kraft went below and did proctosigmoidoscopy with a large amount of air and stool drainage. We then took down this gastrocutaneous fistula with electrocautery. The mucosa was sewn closed with a 3-0 Vicryl at first, but we decided to staple the stomach with a TX 30 green staple white stapler. Once this was done, the stomach was replaced in the abdominal cavity. Next, the colon, which had been mobilized and decompressed was brought out through the stoma site and the abdominal cavity was irrigated thoroughly with saline solution, aspirated dry and hemostasis maintained throughout with electrocautery and ligature. The abdominal cavity was closed in a single layer using a double-stranded #1 PDS suture and the subcutaneous tissue was irrigated thoroughly with saline solution, aspirated dry and the skin was closed with running 3-0 Vicryl subcuticular suture. The previously brought out colostomy was then opened and further decompressed with pool suction and then the colostomy was matured with interrupted 3-0 Vicryl sutures and a 57 mm appliance was placed on the colostomy. Dressings were applied. Sponge, needle and instrument counts were reported as correct. Estimated blood loss was 50 mL. The patient tolerated the procedure well and left the operating room in good condition. Shawn Melendez MD JTT/jammie , 06:07 PM , 06:17 PM
--- NOTE | 2018-02-13 22:41 | MB ---
cc: Sita, Terry Aquino,Dara Melendez,Shawn Livingston MD DATE: 02/13/2018 REASON FOR CONSULTATION: Consult requested by Dr. Melendez for evaluation of metastatic rectal cancer. HISTORY OF PRESENT ILLNESS: Asif is a 72-year-old male. He is very frail and debilitated. Dr. Melendez had called me yesterday and have discussed the case and gave me his previous history dating back from 2013. I will summarize this here. In 01/2014, he was diagnosed with localized rectal cancer. He was evaluated by radiation oncologist, Dr. Palafox and medical oncologist, Dr. Mccollum. The patient was treated with preoperative radiation and Xeloda chemotherapy, which he completed in 03/2014. Subsequently, the patient became quite ill and he had developed pneumonia. He lost to follow up for surgery. In 12/2014, he came back to see Dr. Melendez. Surgery was recommended. On 12/29/2014, he underwent rectosigmoid colectomy with a diverting loop ileostomy. The patient has tolerated the procedure well. The pathology report showed moderately differentiated adenocarcinoma of the rectosigmoid area. There were 2 extramural deposits noted. All 3 lymph nodes were negative. It was pT2 pN1c M0. Stage III. The patient was discharged to home. However, 3 months later in 03/2015, he was admitted to the hospital for small-bowel obstruction. He had exploratory laparotomy and resection of the part of the small bowel, which was causing the obstruction. Also, the ileostomy was reversed and he has end to end anastomosis. The patient was very debilitated at that time and a gastrostomy tube was placed in by Dr. Griffin Lopez for nutrition. The patient again lost to follow up, up until 09/2017. He came back to the emergency room with dehydration and constipation. He had a gastrostomy tube which he had not used it. This was removed by ER physician. Subsequently, he had developed a fistula at the previous gastrostomy tube site. The patient at this time came in to the emergency room complaining of nausea, vomiting, severe constipation with abdominal distention. He underwent CAT scan of the abdomen and pelvis, which showed a colonic bowel obstruction down to the rectum. Also, he was found to have lung lesions on the right side. A dedicated CAT scan of the chest showed multiple pulmonary nodules, mostly on the right side consistent with metastasis. I have been asked to see the patient for further evaluation. The patient is scheduled to have exploratory laparotomy for bowel obstruction later today by Dr. Melendez. He is looking forward to that surgery as he feels miserable. He still has an NG tube. He has abdominal distention, which has improved since the admission. The patient has been losing weight. He has been noncompliant with his followups. His primary physician is Dr.Ferman Buckner. PAST MEDICAL HISTORY: COPD, Zenker's diverticulum, gastroesophageal reflux disease, abdominal aortic aneurysm and rectal cancer. PAST SURGICAL HISTORY: Upper endoscopy with dilatation for the Zenker's diverticulum, colonoscopy and gastrostomy tube placement. Rectosigmoid colectomy with diverting ileostomy, subsequently ileostomy was reversed and had partial resection of the small bowel for obstruction. ALLERGIES: HYDROCODONE, WHICH CAUSES THE RASH. MEDICATIONS PRIOR TO GOING TO THE HOSPITAL: None. FAMILY HISTORY: Father from bladder cancer. Mother from stroke. The patient had 2 brothers, 1 sister, 1 son and no daughters. He is estranged from his family and he does not know about the health status or whether they are still alive or not. SOCIAL HISTORY: The patient is , lives with a roommate. He used to smoke cigarettes, 2 packs a day for 40 years, quit in 1997. Drinks alcohol socially. 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 PHYSICAL EXAMINATION: GENERAL: He is a well-developed, emaciated, cachectic-appearing white male. VITAL SIGNS: Temperature 97.9, heart rate is 68, blood pressure 141/77, O2 saturation 93%. HEENT: Bitemporal wasting noted. NG tube noted. Oral mucosa is dry. NECK: No lymphadenopathy. LUNGS: Decreased breath sounds on both sides. HEART: Regular rate and rhythm. ABDOMEN: Distended, decreased bowel sounds. EXTREMITIES: No pedal edema. NEUROLOGIC: Awake, alert, oriented x 3. SKIN: No significant lesions noted. ASSESSMENT: 1. New onset bowel obstruction, looks like this time he has large bowel obstruction going down to the rectum. 2. Multiple lung lesions, mostly on the right side consistent with metastasis. 3. History of adenocarcinoma of the rectum in 01/2014, he was treated with preoperative radiation and Xeloda chemotherapy followed by rectosigmoidectomy and diverting loop ileostomy. He had not had any adjuvant treatment because he lost to follow up. 4. Chronic obstructive pulmonary disease. 5. Zenker's diverticulum. 6. Gastroesophageal reflux disease. 7. 4.5 cm abdominal aortic aneurysm. PLAN: I have reviewed his available records and I have discussed with the patient regarding his present condition. The patient was diagnosed originally with the rectal cancer in 2013. After preoperative radiation and chemotherapy, he had a significant delay in getting definitive surgery. Ten months after completing the neoadjuvant preoperative treatment, he had surgery, which showed pT2, pN1c, M0 rectal cancer, moderately differentiated adenocarcinoma. There were 2 extramural deposits noted. The patient lost to followup and did not go back to the oncologist for the adjuvant treatment. The patient will have exploratory laparotomy and evaluation of large bowel obstruction later today. We discussed the CAT scan of the chest, abdomen and pelvis findings, which showed multiple lesions in the lung on the right side. Majority are less than 1 cm. There is some right hilar lymphadenopathy noted as well. His CEA is 1.4, which is normal. His creatinine is normal. Liver enzymes are normal. Albumin is at lower limit of normal at 3.4. We discussed palliative chemotherapy with Xeloda. The patient is very familiar with Xeloda as he had it as preoperative therapy with radiation. The patient does not seem to be a candidate for any palliative chemotherapy at this time given his very poor clinical status and he is very emaciated. He needs to build up and get stronger, so that we can offer him palliative chemotherapy. He does not have that much tumor burden in the lung, so he is not in crisis from lung metastasis at this time. Certainly this could change and one never know when this will happen. At this time, the patient is not a candidate for any chemotherapy. Once he gets better and stronger, certainly we will discuss with him regarding chemotherapy option, which in my opinion would be oral Xeloda. The patient has asked several questions and these were answered to his satisfaction. Thank you Dr. Melendez for asking my opinion. MD YOSELIN Ruiz/justo/ , 07:13 PM , 07:36 PM ADRIANE
[2018-02-14] MEDS: KCL 20 mEq/D5W/LR Inj 1,000 ML IV.CONT SCH ×3 (02:09→21:50)
[2018-02-14 07:43] LABS: Hematocrit 35.5 % (39.0-51.0); Hemoglobin 11.9 gm/dL (13.0-17.0); Mean Corpuscular HGB Conc 33.5 % (32.0-36.0); Mean Corpuscular Volume 89.5 fL (80.0-100.0); Mean Platelet Volume 9.1 fL (7.0-11.0); Platelet Count 196 th/mm3 (150-450); Red Blood Count 3.97 mil/mm3 (4.50-5.90); Red Cell Distribution Width 15.6 % (11.6-17.2)
[2018-02-14 08:04] LABS: Anion Gap 11 meq/L (5-15); Blood Urea Nitrogen 6 mg/dL (7-18); Calcium 7.4 mg/dL (8.5-10.1); Carbon Dioxide 24.4 meq/L (21.0-32.0); Chloride 103 meq/L (98-107); Glomerular Filtration Rate Greater Than 89 mL/min (>89); Glucose,Random 124 mg/dL (74-106); Potassium 3.8 meq/L (3.5-5.1); Sodium 138 meq/L (136-145)
[2018-02-14] MEDS: Pantoprazole Inj 40 MG Vial IV.PUSH SCH (08:21)
[2018-02-14] MEDS: Polyethylene Glycol 3350 17 GM Packet PO SCH (08:22)
[2018-02-14 08:35] LABS: Eosinophils 2 % (0-4); Lymphocytes 4 % (9-44); Monocytes 40 % (0-8)
[2018-02-14 08:36] LABS: Platelet Estimate Normal (Normal); Platelet Morphology Normal (Normal)
--- NOTE | 2018-02-14 09:06 | P.PNCS ---
Subjective Colorectal Surgery Post Op Day #: 1 Interval history: S/P laparotomy and loop colostomy. Sitting in chair. Objective Result Diagrams: 02/14/18 07:10 02/14/18 06:49 Objective Remarks: Abd: mild tenderness. Dressing dry. Stoma pink Assessment and Plan - Plan Up in chair FLD Transfer
--- NOTE | 2018-02-14 22:02 | XR ---
EXAM DATE: 02/14/2018 9:36 PM EDT AGE/SEX: 72 years / Male INDICATIONS: Cough. Congestion. CLINICAL DATA: This is the patient's subsequent encounter. Patient reports that signs and symptoms h ave been present for 3 days and indicates a pain score of 5/10. MEDICAL/SURGICAL HISTORY: None. None. [place] [facility] [place]. . FINDINGS: There are patchy infiltrates at both lung bases causing loss of delineation of portions of both hemid iaphragms. There are some air bronchograms seen medially in the left lower lung. The upper lungs are clear. The heart is normal in size. Mild tortuosity of the descending thoracic aorta, stable from 201 5. No evidence of pneumothorax. CONCLUSION: Bibasilar partially consolidative infiltrates. Electronically signed by: Diogenes Faulkner MD 02/14/2018 10:01 PM EDT
[2018-02-15] MEDS: KCL 20 mEq/D5W/LR Inj 1,000 ML IV.CONT SCH ×2 (01:02→23:19)
[2018-02-15 06:17] LABS: Baso # (Auto) 0.1 th/mm3 (0.0-0.2); Baso % (Auto) 0.3 % (0.0-2.0); Eos # (Auto) 0.1 th/mm3 (0.0-0.4); Eos % (Auto) 0.3 % (0.0-4.0); Hematocrit 32.3 % (39.0-51.0); Hemoglobin 10.8 gm/dL (13.0-17.0); Lymph # (Auto) 0.4 th/mm3 (1.0-4.8); Lymph % (Auto) 2.1 % (9.0-44.0); Mean Corpuscular HGB Conc 33.6 % (32.0-36.0); Mean Corpuscular Hemoglobin 30.1 pg (27.0-34.0); Mean Corpuscular Volume 89.6 fL (80.0-100.0); Mean Platelet Volume 9.5 fL (7.0-11.0); Mono # (Auto) 5.6 th/mm3 (0.0-0.9); Neut # (Auto) 15.5 th/mm3 (1.8-7.7); Neut % (Auto) 71.3 % (16.0-70.0); Platelet Count 212 th/mm3 (150-450); Red Cell Distribution Width 15.9 % (11.6-17.2); White Blood Count 21.7 th/mm3 (4.0-11.0)
[2018-02-15 06:28] LABS: Anion Gap 11 meq/L (5-15); Blood Urea Nitrogen 8 mg/dL (7-18); Calcium 7.3 mg/dL (8.5-10.1); Carbon Dioxide 31.2 meq/L (21.0-32.0); Chloride 96 meq/L (98-107); Glomerular Filtration Rate Greater Than 89 mL/min (>89); Glucose,Random 122 mg/dL (74-106); Sodium 138 meq/L (136-145)
[2018-02-15 06:40] LABS: Potassium 2.6 meq/L (3.5-5.1)
[2018-02-15 07:16] LABS: Total Protein 6.7 g/dL (6.4-8.2)
[2018-02-15 08:11] LABS: Lymphocytes 1 % (9-44); Monocytes 17 % (0-8); Platelet Estimate Normal (Normal); Platelet Morphology Normal (Normal); RBC Morphology Normal (Normal)
[2018-02-15] MEDS: Potassium Chlor 10 mEq Premix 10 MEQ/100 ML PIGGYBACK IV.SIG SCH ×2 (09:57→15:12)
[2018-02-15] MEDS: Pantoprazole Inj 40 MG Vial IV.PUSH SCH (09:57)
--- NOTE | 2018-02-15 10:17 | P.PNCS ---
Subjective Colorectal Surgery Post Op Day #: 2 Interval history: Pt developed moderate drop in O2 sats into upper 80s. N/C O2 4 liters now. Denies chest pain or SOB. Portable CxR with atelectasis and air bronchograms. Objective Result Diagrams: 02/15/18 05:00 02/15/18 05:00 Objective Remarks: Abd: mild tenderness. Dressing dry. Stoma pink Assessment and Plan - Plan Up in chair and ambulating. Respiratory Tx started with brown/simms sputum. Stat Sputum gram stain and culture Incentive spirometry re explained to pt. Cough and deep breathe explained. Start Rocephin after sputum collected- Pt has prior distant history of Pneumonias Recheck PA and Lat CxR
--- NOTE | 2018-02-15 11:23 | XR ---
EXAM DATE: 02/15/2018 12:00 AM EDT AGE/SEX: 72 years / Male INDICATIONS: . Shortness of breath. Concern for pneumonia. CLINICAL DATA: This is the patient's subsequent encounter. Patient reports that signs and symptoms h ave been present for 1 week and indicates a pain score of 0/10. MEDICAL/SURGICAL HISTORY: None. None. [place] [facility] [place] [facility] [place]. . FINDINGS: Frontal and lateral views of the chest demonstrate normal size cardiac silhouette. EKG lines overlie the chest on the frontal projection. Lungs are underinflated and there is bibasilar airspace opacity with blunting of the costophrenic sulci. These findings are stable. On the lateral projection there i s air visualized posterior to the sternum in an atypical location and this represents a change from t he prior studies. There is stable atelectasis in the right midlung zone. The pulmonary nodules docume nted on the prior CT are not seen by x-ray. CONCLUSION: 1. Bibasilar airspace opacity representing either atelectasis or consolidation. There is likely a tr melinda pleural fluid bilaterally. The airspace abnormality could represent an infectious process. 2. Nonspecific lucency/air in the retrosternal space inferiorly. This represents a change from the p rior examinations. Consider chest CT for further evaluation. Electronically signed by: Shawn Gamble MD 02/15/2018 11:22 AM EDT
[2018-02-15] MEDS: Potassium Chlor 20 mEq Premix 20 MEQ/100 ML PIGGYBACK IV.SIG PRN (21:29)
[2018-02-16] MEDS: Morphine Inj 30 MG/30 ML PCA.VIAL PCA PRN (05:07)
[2018-02-16 07:24] LABS: Baso # (Auto) 0.1 th/mm3 (0.0-0.2); Eos # (Auto) 0.1 th/mm3 (0.0-0.4); Eos % (Auto) 1.2 % (0.0-4.0); Hematocrit 30.9 % (39.0-51.0); Hemoglobin 10.4 gm/dL (13.0-17.0); Lymph # (Auto) 0.6 th/mm3 (1.0-4.8); Lymph % (Auto) 5.3 % (9.0-44.0); Mean Corpuscular HGB Conc 33.6 % (32.0-36.0); Mean Corpuscular Hemoglobin 30.2 pg (27.0-34.0); Mean Corpuscular Volume 89.8 fL (80.0-100.0); Mean Platelet Volume 9.6 fL (7.0-11.0); Mono # (Auto) 2.5 th/mm3 (0.0-0.9); Mono % (Auto) 24.5 % (0.0-8.0); Platelet Count 213 th/mm3 (150-450); Red Blood Count 3.44 mil/mm3 (4.50-5.90); White Blood Count 10.3 th/mm3 (4.0-11.0)
[2018-02-16 07:53] LABS: Anion Gap 9 meq/L (5-15); Blood Urea Nitrogen 13 mg/dL (7-18); Calcium 8.1 mg/dL (8.5-10.1); Chloride 93 meq/L (98-107); Glomerular Filtration Rate Greater Than 89 mL/min (>89); Glucose,Random 109 mg/dL (74-106); Sodium 136 meq/L (136-145)
[2018-02-16 08:04] LABS: Potassium 2.6 meq/L (3.5-5.1)
[2018-02-16] MEDS: Pantoprazole Inj 40 MG Vial IV.PUSH SCH (08:55)
[2018-02-16] MEDS: Potassium Chloride 25 MEQ Effervescent Tablet PO SCH ×2 (11:05→21:36)
--- NOTE | 2018-02-16 11:41 | P.PNCS ---
Subjective Colorectal Surgery Post Op Day #: 3 Interval history: No complaints. No N or V. Stooling thru new colostomy. Appliance starting to leak. ET nursing to see today. Objective Result Diagrams: 02/16/18 06:38 02/16/18 06:38 Objective Remarks: Abd: mild tenderness. Wound clean. Stoma pink Assessment and Plan - Plan Up in chair and ambulating. Continue Respiratory Tx Incentive spirometry re explained to pt. Cough and deep breathe explained. Recheck PA and Lat CxR Await Sputum C&S Repeat CxR in AM
--- NOTE | 2018-02-16 11:46 | P.DCO ---
- Home Health Nursing Order: Medical education, Signs/symptoms of disease process, Wound care and dressing changes Instructions: New colostomy teaching and supplies - Case Management Consult Yes - Certification I have seen patient Asif Toro on 02/16/18. My clinical findings support the need for the requested home health care services because: Limited mobility due to disease progression, Patient has SOB, Deconditioned with increased weakness, Limited ability to care for self, Need for psychosocial assistance, High risk of falls I certify that my clinical findings support that this patient is homebound because: Post-op weakness, Impaired cognitive ability/safety, Hx COPD - exertion dyspnea/ weakness, Unsteady gait/balance, Unsafe to leave home unassisted, Need for psychosocial assistance, Unable to use public transportation
[2018-02-16] MEDS: Potassium Chlor 20 mEq Premix 20 MEQ/100 ML PIGGYBACK IV.SIG PRN ×3 (12:29→23:46)
--- NOTE | 2018-02-16 14:03 | P.PNONC ---
Subjective Interval history: Afebrile, sleeping on approach, awakens easily to voice. Patient has no complaints at this time. He reports he has been able to tolerate solid foods. We have discussed his pathology report and need for follow-up with oncology upon discharge. Objective Vital Signs/Intake & Output: Vital Signs 02/15/18 15:16 02/15/18 15:25 02/15/18 15:49 Temperature Pulse Rate 88 Respiratory Rate 18 Blood Pressure Pulse Oximetry 94 L 90 L 02/15/18 15:50 02/15/18 16:00 02/15/18 20:00 Temperature 97.7 F 97.7 F Pulse Rate 82 81 Respiratory Rate 17 17 Blood Pressure 103/64 130/63 Pulse Oximetry 92 L 93 L 95 02/15/18 21:22 02/16/18 00:00 02/16/18 08:00 Temperature 97.9 F 97.7 F Pulse Rate 82 92 H 81 Respiratory Rate 20 17 19 Blood Pressure 114/73 119/69 Pulse Oximetry 93 L 87 L 02/16/18 09:42 02/16/18 12:00 Temperature 97.6 F Pulse Rate 83 102 H Respiratory Rate 16 19 Blood Pressure 133/70 Pulse Oximetry 94 L 93 L Intake & Output 02/15/18 02/16/18 02/16/18 18:59 06:59 18:59 Intake Total 1170 / 1170 2260 / 2260 1100 / 1100 Output Total 2400 / 2400 2601 / 2601 Balance -1230 / -1230 -341 / -341 1100 / 1100 Weight 56.5 kg Intake: IV 200 / 200 1300 / 1300 1100 / 1100 D5W/LR + KCL 20 mEq Inj 1,000 1000 / 1000 1000 / 1000 ML @ 30 mls/hr IV.CONT .Q24H KRISS Rx#:[id number] KCl 10 mEq Premix Inj 10 meq In 100 / 100 100 / 100 100 ml @ 100 mls/hr IV.SIG Q1H KRISS Rx#:[id number] KCl 20 mEq Premix Inj 20 meq In 100 / 100 100 ml @ 50 mls/hr IV.SIG UNSCH PRN Rx#:[id number] Rocephin Inj 1,000 MG In NS Inj 100 / 100 100 / 100 100 / 100 100 ML @ 200 mls/hr IV.SIG Q12H KRISS Rx#:[id number] Oral 970 / 970 960 / 960 Output: Urine 2400 / 2400 2100 / 2100 Stool 1 / Stool Amount (Stoma) 500 / 500 Right Lower Abdomen 500 / 500 Result Diagrams: 02/16/18 06:38 02/16/18 06:38 Laboratory Results: Laboratory Results - last 24 hr 02/15/18 02/16/18 02/16/18 20:20 06:38 06:38 WBC 10.3 RBC 3.44 L Hgb 10.4 L Hct 30.9 L MCV 89.8 MCH 30.2 MCHC 33.6 RDW 16.0 Plt Count 213 MPV 9.6 Prelim Diff (Auto) Slide review pending Neut % (Auto) 68.0 Lymph % (Auto) 5.3 L Canadian % (Auto) 24.5 H Eos % (Auto) 1.2 Baso % (Auto) 1.0 Neut # (Auto) 7.0 Lymph # (Auto) 0.6 L Canadian # (Auto) 2.5 H Eos # (Auto) 0.1 Baso # (Auto) 0.1 WBC Differential . Diff Scan Auto diff confirmed Differential Comment . Sodium 136 Potassium 3.1 L 2.6 L* Chloride 93 L Carbon Dioxide 34.0 H Anion Gap 9 BUN 13 Creatinine 0.82 Estimated GFR Greater than 89 Random Glucose 109 H Calcium 8.1 L D Culture Results: Microbiology 02/15/18 16:29 Gram Stain - Final Sputum - Expectorated Sputum Medications: Active Medications Generic Name Dose Route Start Last Admin Trade Name Freq PRN Reason Stop Dose Admin Albuterol 2.5 mg 02/15/18 00:00 02/16/18 09:41 Albuterol Neb (Kriss) NEB 2.5 mg Q6HR NEB KRISS Administration Alvimopan 12 mg 02/14/18 09:00 02/16/18 08:54 Entereg PO 02/20/18 21:01 12 mg BID KRISS Administration Enalaprilat 1.25 mg 02/13/18 17:41 02/13/18 18:50 Vasotec Inj IV.PUSH 1.25 mg Q4H PRN Administration SBP > 160 mmHg Fluconazole 200 mg 02/14/18 09:15 02/16/18 08:54 Diflucan PO 200 mg DAILY KRISS Administration Sodium Chloride 500 mls @ 30 mls/hr 02/13/18 01:00 02/13/18 21:49 Ns Inj IV.SIG Not Given .Q10H KRISS Potassium Cl/Dextrose/Lact Ringer's 1,000 mls @ 30 mls/hr 02/13/18 19:00 06/05 12:35 D5w/Lr + Kcl 20 Meq Inj IV.CONT Infused .Q24H KRISS Infusion Potassium Chloride 20 meq in 100 mls @ 50 mls/hr 02/13/18 17:41 02/16/18 12: 29 Kcl 20 Meq Premix Inj IV.SIG 50 mls/hr UNSCH PRN Administration for K+ level 3.0-3.5 Ceftriaxone Sodium 1,000 mg/ 100 mls @ 200 mls/hr 02/15/18 11:00 02/16/18 12: 40 Sodium Chloride IV.SIG Infused Q12H KRISS Infusion Metoclopramide HCl 10 mg 02/13/18 18:00 02/16/18 12:30 Reglan Inj IV.PUSH 10 mg Q6HR KRISS Administration Protocol Nystatin/Triamcinolone Acetonide 1 applicatio 02/14/18 10:00 02/16/18 08:55 Mycolog Ii Cream TOPICAL 1 applicatio BID KRISS Administration Oxycodone HCl 5 mg 02/10/18 20:22 02/12/18 14:24 Roxicodone PO 5 mg Q4H PRN Administration PAIN 1-5 Oxycodone HCl 10 mg 02/10/18 20:22 02/15/18 12:26 Roxicodone PO 10 mg Q4H PRN Administration PAIN 6-10 Pantoprazole Sodium 40 mg 02/14/18 09:00 02/16/18 08:55 Protonix Inj IV.PUSH 40 mg DAILY KRISS Administration Potassium Bicarb/Potassium Chloride 25 meq 02/16/18 11:00 02/16/18 11:05 K-Lyte Cl Eff PO 25 meq BID KRISS Administration Sodium Chloride 2 ml 02/13/18 21:00 02/16/18 08:56 Ns Flush IV.FLUSH Not Given BID KRISS Objective Remarks: GENERAL: Cachectic appearing male patient, lying in bed, in no acute distress. SKIN: Warm and dry. HEAD: Normocephalic. EYES: No scleral icterus. No injection or drainage. NECK: Supple, trachea midline. CARDIOVASCULAR: Regular rate and rhythm without murmurs. RESPIRATORY: Breath sounds equal bilaterally. Nonlabored at rest. GASTROINTESTINAL: Abdomen soft, non-tender, nondistended. Red stoma right mid abdomen. EXTREMITIES: No cyanosis, or edema. MUSCULOSKELETAL: Decreased muscle tone. NEUROLOGICAL: No obvious focal deficit. Awake, alert, and oriented x3. PSYCHIATRIC: Appropriate mood and affect; insight and judgment normal. Assessment/Plan - Plan Mr. Toro is a pleasant 72-year-old male patient with a history of rectal cancer , originally diagnosed in 2013. Patient underwent preoperative radiation and chemotherapy, with a significant delay in getting definitive surgery. After surgery the patient was lost to follow-up and did not obtain adjuvant treatment. The patient presented to the ER during this hospitalization for abdominal distention and severe diarrhea, in which he had taken Lomotil and felt it stopped him up. He was found to have colonic bowel obstruction down to the rectum. A CT scan chest showed multiple pulmonary nodules, mostly on the right side consistent with metastasis. Oncology was consulted for this. Plan: 1. Colonic bowel obstruction, status post exploratory laparotomy, lysis of adhesions and diverting loop transverse colostomy, with Dr. Melendez on 2017. 2. 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 Discussed results with patient, he states he spoke to Dr. Aquino and plans for follow-up in a couple weeks. Once patient has regained strength he will likely be treated with Xeloda. 3. Hypokalemia, currently receiving IV potassium. Management per attending. 4. Continue supportive care. - Attending Statement The exam, history, and the medical decision-making described in the above note were completed with the assistance of the mid-level provider. I reviewed and agree with the findings presented. I attest that I had a [id number] encounter with the patient on the same day, and personally performed and documented my assessment and findings in the medical record. Patient is eating and able to tolerate. Denies any nausea or vomiting. Patient underwent colonoscopy last week by Dr. Melendez. Findings noted. Biopsy of the rectal mass at the anastomotic site done and the pathology showed adenocarcinoma consistent with colonic primary. Last week Friday patient underwent exploratory laparotomy and diverting transverse colostomy. He has tolerated the procedure well.. We discussed that he needs to improve his calorie intake and needs to get little bit stronger before we can offer him palliative chemotherapy I will see him in my office in 2-3 weeks for follow-up I have discussed with Dr. Melendez
--- NOTE | 2018-02-16 17:44 | P.PNWCN ---
Wound Care Nurse Consult Description: Received consult from Doctor Melendez for RUQ colostomy management and teaching Communicated with: LIZZ montanez and patient Recommendation: Empty colostomy pouch when 1/3 to 1/2 full. Change ostomy appliance every 5 to 7 days or PRN if leaking. Do not tape adhesive edges of colostomy appliance to seal. Please order 2 3/4 moldable ostomy appliances for patient. Bowel Diversion Stoma - Bowel Stoma Right Upper Abdomen Stoma Edema: Yes Stoma Diameter: 44 (~44mm) Stoma Appearance: Beefy Red Collection Device: Two-piece Wafer Size: 2 3/4 moldable Aleyda-Stomal Surrounding Tissue Sensation Description: No Symptoms - Additional Information Additional Information: Patient seen for new ostomy teaching for new RUQ colostomy. Patient has a history of ileostomy 3 years ago due to Rectal CA. Patient now has colostomy to RUQ of abdomen. Stoma is visualized through transparent pouch and present red, round and protruding. Stoma measures ~1 3/4 or 44 mm in diameter. Per LIZZ Luna, Colostomy appliance in place was changed today due to leaking. Reviewed type of ostomy surgery with patient, types of appliances, stoma appearance, when to change and empty colostomy appliance.
[2018-02-16] MEDS ORDERED: Vancomycin Inj 1,000 MG in Sodium Chlor 0.9% Inj 250 ML IV.SIG SCH (18:00)
[2018-02-16] MEDS: KCL 20 mEq/D5W/LR Inj 1,000 ML IV.CONT SCH (23:03)
[2018-02-17 04:27] LABS: Anion Gap 11 meq/L (5-15); Baso # (Auto) 0.1 th/mm3 (0.0-0.2); Baso % (Auto) 0.9 % (0.0-2.0); Blood Urea Nitrogen 9 mg/dL (7-18); Calcium 7.6 mg/dL (8.5-10.1); Carbon Dioxide 33.9 meq/L (21.0-32.0); Chloride 97 meq/L (98-107); Eos # (Auto) 0.1 th/mm3 (0.0-0.4); Glomerular Filtration Rate Greater Than 89 mL/min (>89); Glucose,Random 99 mg/dL (74-106); Hematocrit 27.5 % (39.0-51.0); Hemoglobin 9.3 gm/dL (13.0-17.0); Lymph # (Auto) 0.4 th/mm3 (1.0-4.8); Lymph % (Auto) 7.3 % (9.0-44.0); Mean Corpuscular HGB Conc 33.8 % (32.0-36.0); Mean Corpuscular Hemoglobin 30.4 pg (27.0-34.0); Mean Corpuscular Volume 89.9 fL (80.0-100.0); Mean Platelet Volume 9.2 fL (7.0-11.0); Mono # (Auto) 1.6 th/mm3 (0.0-0.9); Mono % (Auto) 28.2 % (0.0-8.0); Neut # (Auto) 3.5 th/mm3 (1.8-7.7); Neut % (Auto) 61.6 % (16.0-70.0); Platelet Count 202 th/mm3 (150-450); Red Blood Count 3.05 mil/mm3 (4.50-5.90); Red Cell Distribution Width 15.9 % (11.6-17.2); Sodium 142 meq/L (136-145); White Blood Count 5.7 th/mm3 (4.0-11.0)
[2018-02-17 04:28] LABS: Potassium 2.7 meq/L (3.5-5.1)
[2018-02-17] MEDS: Potassium Chlor 20 mEq Premix 20 MEQ/100 ML PIGGYBACK IV.SIG PRN ×2 (05:41→09:55)
--- NOTE | 2018-02-17 08:46 | XR ---
EXAM DATE: 02/17/2018 6:00 AM EDT AGE/SEX: 72 years / Male INDICATIONS: . Possible Pneumonia. CLINICAL DATA: This is the patient's subsequent encounter. Patient reports that signs and symptoms h ave been present for 1 week and indicates a pain score of 0/10. MEDICAL/SURGICAL HISTORY: . Carcinoma, rectal. . Rectal surgery. COMPARISON: [facility], CHEST 2V AP&LAT, 02/15/2018. . FINDINGS: Bibasilar patchiness is noted consistent with probable pneumonia. Clinical correlation is recommended . The heart is stable. CONCLUSION: 1. Bibasilar patchiness is noted consistent with probable pneumonia. Clinical correlation is recomme nded. Electronically signed by: Adarsh Stokes MD 02/17/2018 8:45 AM EDT
[2018-02-17] MEDS: Pantoprazole Inj 40 MG Vial IV.PUSH SCH (09:48)
[2018-02-17] MEDS: Potassium Chloride 25 MEQ Effervescent Tablet PO SCH ×2 (09:48→21:28)
[2018-02-17] MEDS ORDERED: Vancomycin Consult Pharmacy OTHER PRN (13:28)
--- NOTE | 2018-02-17 13:46 | P.PNCS ---
Subjective Colorectal Surgery Post Op Day #: 4 Interval history: Breathing comfortable. Sputum grew MRSA. Placed on Vanco. Stopped Rocephin. Objective Result Diagrams: 02/17/18 03:20 02/17/18 03:20 Objective Remarks: Abd: mild tenderness. Wound clean. Stoma pink Assessment and Plan - Assessment (1) Colostomy care Code(s): Z43.3 - Encounter for attention to colostomy Status: Acute - Plan Up in chair and ambulating. Consult Dr Velazco- Pt known to him Consult Case management- MSP Replete KCl
--- NOTE | 2018-02-17 14:29 | P.PNWCN ---
Wound Care Nurse Consult Description: Patient seen for follow up of RUQ colostomy management and teaching Communicated with: LIZZ montanez Recommendation: Empty colostomy pouch when 1/3 to 1/2 full. Change ostomy appliance every 5 to 7 days or PRN if leaking. Do not tape adhesive edges of colostomy appliance to seal. Please order 2 3/4 moldable ostomy appliances for patient. Bowel Diversion Stoma - Bowel Stoma Right Upper Abdomen Stoma Edema: Yes Stoma Appearance: Beefy Red, Oval, Protruding Loop Supporting Berhane: No Collection Device: Two-piece Drainage Description: Liquid, Brown Wafer Size: 2 3/4 moldable Stoma Care: Pouch and Wafer Changed, Skin Care Aleyda-Stomal Skin Appearance: Intact Aleyda-Stomal Surrounding Tissue Sensation Description: No Symptoms - Additional Information Additional Information: Patient seen for follow up teaching of colostomy care and management. Stoma measures 1 1/2 inch tall and 1 3/4 inch wide.Script is in chart. Starter kit has been ordered.Two piece colostomy appliance changed by senior medical writer due to leaking with step by step verbal instructions given to patient as appliance was being changed. Patient has had ostomy in the past, but patient admits to forgetting details involving changing appliance. Patient tolerated colostomy, two piece appliance change well.
[2018-02-17] MEDS: Vancomycin Inj 1,000 MG in Sodium Chlor 0.9% Inj 250 ML IV.SIG SCH (18:40)
--- NOTE | 2018-02-17 18:54 | MB ---
cc: Shamir Brand MD,Dolly WEEKS DATE: 02/17/2018 REQUESTING PHYSICIAN: Dolly Montenegro MD REASON FOR CONSULTATION: Recurrent pneumonia. HISTORY OF PRESENT ILLNESS: Mr. Toro is a 72-year-old male with a history of COPD, nicotine use, rectal carcinoma diagnosed in 2013. He saw a radiation oncologist. The patient developed pneumonia at that time and was lost to followup. Now, he comes to the hospital with abdominal distention. He was found to have a high-grade obstruction. He underwent an exploratory laparotomy with diverting colostomy. He has a cough with a small amount of sputum production. He does not have any fever or chills. LABORATORY DATA: Sodium 140, potassium 2.7, chloride 97, CO2 of 33, BUN 9, creatinine 0.61. PAST MEDICAL HISTORY: Significant for a history of colorectal cancer, status post diverting colostomy, COPD. MEDICATIONS: He is currently takin. Albuterol and Atrovent nebulizer treatments. 2. Enalapril p.r.n. 3. Diflucan 200 mg a day. 4. Reglan 10 mg q.6 hours. 5. Zofran p.r.n. 6. Nystatin locally. 7. Oxycodone for pain. 8. Protonix 40 mg a day. 9. Vancomycin IV. ALLERGIES: HE IS ALLERGIC TO ACETAMINOPHEN AND HYDROCODONE. SOCIAL HISTORY: He is . 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 He has a 40-year history of smoking 2 packs a day. FAMILY HISTORY: He lives with a friend and his son. REVIEW OF SYSTEMS: He feels very weak. He rides a bike and gets short of breath with exertion. He has a prior history of pneumonia before. No DVT or pulmonary embolism. No seizure, stroke or epilepsy. PHYSICAL EXAMINATION: GENERAL: A frail, elderly male who is mildly short of breath. VITAL SIGNS: Blood pressure 146/60, heart rate 72, respirations 20, temperature 97.2. HEENT: He has temporal muscle wasting. NECK: Supple. No JVD noted. CHEST: He has scattered rales. CARDIOVASCULAR: S1, S2 normal. ABDOMEN: He has a diverting colostomy and healing abdominal wound. EXTREMITIES: No edema. IMPRESSION: 1. Basilar pneumonia. He has an methicillin-resistant Staphylococcus aureus infection. 2. Chronic obstructive pulmonary disease. 3. Nicotine use. 4. Colorectal cancer. 5. Status post diverting colostomy. PLAN: We will continue vancomycin. Give him aerosol treatments. Supplement his oxygen. Monitor his cultures. Once he gets better, we will check a pulmonary function study. Further treatment will depend on the course in the hospital. Thank you, Dr. Montenegro, for this consult. MD PRESTON Azevedo/philip , 05:36 PM , 05:45 PM
[2018-02-18] MEDS: KCL 20 mEq/D5W/LR Inj 1,000 ML IV.CONT SCH (00:08)
[2018-02-18] MEDS: Vancomycin Inj 1,000 MG in Sodium Chlor 0.9% Inj 250 ML IV.SIG SCH ×2 (05:38→17:57)
[2018-02-18] MEDS: Pantoprazole Inj 40 MG Vial IV.PUSH SCH (08:22)
[2018-02-18] MEDS: Potassium Chloride 25 MEQ Effervescent Tablet PO SCH ×4 (08:22→20:28)
--- NOTE | 2018-02-18 08:42 | P.PNCS ---
Subjective Colorectal Surgery Post Op Day #: 5 Interval history: No complaints. No N or V. Stooling. Appreciate Dr Brand's help Objective Result Diagrams: 02/17/18 03:20 02/17/18 03:20 Objective Remarks: Abd: mild tenderness. Wound clean. Stoma pink Assessment and Plan - Assessment (1) Colostomy care Code(s): Z43.3 - Encounter for attention to colostomy Status: Acute - Plan Up in chair and eating this AM Possible NHP Replete KCl
[2018-02-18 08:45] LABS: Glomerular Filtration Rate Greater Than 89 mL/min (>89)
[2018-02-18 08:47] LABS: Potassium 2.6 meq/L (3.5-5.1)
[2018-02-18] MEDS: Potassium Chlor 20 mEq Premix 20 MEQ/100 ML PIGGYBACK IV.SIG PRN (09:07)
--- NOTE | 2018-02-18 18:11 | P.PNPL ---
Subjective Interval history: 72 YOWM with Colorectal ca, s/p diverting colostomy has Basal infilterates Sputum MRSA Has Cough with small amount of sputum No Fever Weak Physical Exam Vital signs: Vital Signs 02/17/18 20:00 02/17/18 21:25 02/18/18 00:00 Temperature 98.1 F 98 F Pulse Rate 80 76 75 Respiratory Rate 16 16 17 Blood Pressure 131/67 133/63 Pulse Oximetry 94 L 97 94 L 02/18/18 07:05 02/18/18 07:06 02/18/18 07:07 Temperature 98.0 F 98.0 F Pulse Rate 75 75 Respiratory Rate 17 17 Blood Pressure 123/67 123/67 Pulse Oximetry 95 02/18/18 07:12 02/18/18 11:33 02/18/18 16:00 Temperature 98.0 F 98.0 F 97.9 F Pulse Rate 75 70 75 Respiratory Rate 17 16 17 Blood Pressure 123/67 122/58 L 151/75 H Pulse Oximetry 95 95 96 Intake & Output 02/17/18 02/18/18 02/18/18 18:59 06:59 18:59 Intake Total 820 / 820 1730 / 1730 350 / 350 Output Total 475 / 475 1600 / 1600 200 / 200 Balance 345 / 345 130 / 130 150 / 150 Weight 62.5 kg Intake: IV 100 / 100 1250 / 1250 350 / 350 D5W/LR + KCL 20 mEq Inj 1,000 1000 / 1000 ML @ 30 mls/hr IV.CONT .Q24H YRIS Rx#:[id number] KCl 20 mEq Premix Inj 20 meq In 100 / 100 100 / 100 100 ml @ 50 mls/hr IV.SIG UNSCH PRN Rx#:[id number] Vancomycin Inj 1,000 MG In NS 250 / 250 250 / 250 Inj 250 ML @ 250 mls/hr IV.SIG Q12H YRIS Rx#:[id number] Oral 720 / 720 480 / 480 Output: Urine 325 / 325 700 / 700 200 / 200 Stool 150 / 150 Stool Amount (Stoma) 900 / 900 Right Lower Abdomen 350 / 350 Right Upper Abdomen 550 / 550 Other: # Incontinent Voids 1 Date of Last Bowel Movement 02/17/18 GENERAL: Frail elderly WM, weak, mild sob SKIN: Warm and dry. HEAD: Normocephalic.Temporal wasting EYES: No scleral icterus. No injection or drainage. NECK: Supple, trachea midline. No JVD or lymphadenopathy. CARDIOVASCULAR: Regular rate and rhythm without murmurs, gallops, or rubs. RESPIRATORY: Breath sounds equal bilaterally. No accessory muscle use. GASTROINTESTINAL: Abdomen soft, non-tender, nondistended. Diverting colostomy MUSCULOSKELETAL: No cyanosis, or edema. BACK: Nontender without obvious deformity. No CVA tenderness. - Urinary Catheter Management Indwelling Urethral Catheter Cath placed during this visit: yes Reason for continuing: Other continuation reason Insertion date: 02/13/18 Insertion time: 16:01 Assessment and Plan - Plan IMPRESSION: 1. Basilar pneumonia. He has an methicillin-resistant Staphylococcus aureus infection. 2. Chronic obstructive pulmonary disease. 3. Nicotine use. 4. Colorectal cancer. 5. Status post diverting colostomy. PLAN: Cont vancomycin Aerosol nebs Supplement 02 monitor Lytes Oxycodone for Pain.
--- NOTE | 2018-02-18 18:30 | P.PNWCN ---
Wound Care Nurse Consult Description: Patient seen for follow up of RQ colostomy management and teaching Communicated with: Patient Recommendation: Empty pouch when 1/3 to 1/2 full. Change ostomy appliance every 5 days and PRN if leaking. Please do not tape adhesive edges of colostomy appliance to seal. Please order 2 3/4 moldable ostomy appliances for patient. Additional information: Patient seen on for ostomy assessment and reinforcement of teaching. Bowel Diversion Stoma - Bowel Stoma Right Upper Abdomen Stoma Edema: Yes Stoma Appearance: Protruding (red, moist and functioning) Loop Supporting Berhane: No Collection Device: Two-piece, Moldable Wafer Drainage Description: Soft, Liquid, Brown - Additional Information Additional Information: Patient seen for follow up teaching of colostomy care and management. Patient states that he has had an ostomy previously.
[2018-02-19] MEDS: KCL 20 mEq/D5W/LR Inj 1,000 ML IV.CONT SCH ×2 (00:31→23:39)
[2018-02-19] MEDS ORDERED: Pharmacy Ordered Lab Info OTHER ONE (05:45)
[2018-02-19 06:11] LABS: Anion Gap 9 meq/L (5-15); Blood Urea Nitrogen 4 mg/dL (7-18); Calcium 7.7 mg/dL (8.5-10.1); Carbon Dioxide 27.5 meq/L (21.0-32.0); Chloride 102 meq/L (98-107); Glomerular Filtration Rate Greater Than 89 mL/min (>89); Glucose,Random 97 mg/dL (74-106); Potassium 3.1 meq/L (3.5-5.1); Sodium 138 meq/L (136-145); Vancomycin,Trough 7.8 mcg/mL (5.0-10.0)
[2018-02-19] MEDS: Vancomycin Inj 1,000 MG in Sodium Chlor 0.9% Inj 250 ML IV.SIG SCH (06:49)
[2018-02-19] MEDS: Pantoprazole Inj 40 MG Vial IV.PUSH SCH (08:46)
[2018-02-19] MEDS: Potassium Chloride 25 MEQ Effervescent Tablet PO SCH ×4 (08:48→20:34)
[2018-02-19 09:42] LABS: Baso # (Auto) 0.2 th/mm3 (0.0-0.2); Eos # (Auto) 0.2 th/mm3 (0.0-0.4); Eos % (Auto) 3.4 % (0.0-4.0); Hematocrit 32.9 % (39.0-51.0); Hemoglobin 10.8 gm/dL (13.0-17.0); Lymph # (Auto) 0.7 th/mm3 (1.0-4.8); Mean Corpuscular HGB Conc 32.7 % (32.0-36.0); Mean Corpuscular Hemoglobin 29.8 pg (27.0-34.0); Mean Platelet Volume 8.6 fL (7.0-11.0); Mono # (Auto) 1.3 th/mm3 (0.0-0.9); Mono % (Auto) 20.6 % (0.0-8.0); Neut # (Auto) 3.8 th/mm3 (1.8-7.7); Platelet Count 283 th/mm3 (150-450); Red Blood Count 3.61 mil/mm3 (4.50-5.90); Red Cell Distribution Width 15.6 % (11.6-17.2); White Blood Count 6.2 th/mm3 (4.0-11.0)
[2018-02-19] MEDS: POTASSIUM CHLORIDE IV.SIG SCH (12:45)
--- NOTE | 2018-02-19 13:35 | P.PNCS ---
Subjective Colorectal Surgery Post Op Day #: 6 Interval history: Coughing copious sputum. Otherwise OK. Objective Result Diagrams: 02/19/18 09:18 02/19/18 05:40 Objective Remarks: Abd: mild tenderness. Wound clean. Stoma pink Assessment and Plan - Assessment (1) Colostomy care Code(s): Z43.3 - Encounter for attention to colostomy Status: Acute - Plan Will recheck CxR today Appreciate Pulmonary. Continue Vancomycin Possible NHP Replete KCl
--- NOTE | 2018-02-19 15:02 | XR ---
EXAM DATE: 02/19/2018 1:00 PM EDT AGE/SEX: 72 years / Male INDICATIONS: . Evaluate for pneumonia. CLINICAL DATA: This is the patient's subsequent encounter. Patient reports that signs and symptoms h ave been present for 4 - 6 days and indicates a pain score of 0/10. MEDICAL/SURGICAL HISTORY: Carcinoma, rectal. . Rectal surgery. COMPARISON: [facility], CHEST 2V AP&LAT, 02/17/2018. . FINDINGS: Slight interval improvement of bibasilar infiltrates compared to the previous examination. Mild resid ual streakiness is noted. The heart is stable. CONCLUSION: Slight interval improvement of bibasilar infiltrates compared to the previous examination. Mild resid ual streakiness is noted. Electronically signed by: Adarsh Stokes MD 02/19/2018 3:01 PM EDT
[2018-02-19] MEDS: Vancomycin Inj 1,500 MG in Sodium Chlor 0.9% Inj 500 ML IV.SIG SCH (15:32)
--- NOTE | 2018-02-19 16:37 | P.PNPL ---
Subjective Interval history: 72 YOWM with Colorectal ca, s/p diverting colostomy has Basal infilterates Sputum MRSA Cough with copius sputum, feels exhausted No Fever Appetite poor, eating makes him cough CXr some improvement in basal infilterates Physical Exam Vital signs: Vital Signs 02/18/18 19:51 02/18/18 22:25 02/19/18 01:00 Temperature 97.4 F L 97.5 F L Pulse Rate 94 H 90 81 Respiratory Rate 18 18 18 Blood Pressure 184/86 H 149/76 H Pulse Oximetry 94 L 94 L 95 02/19/18 08:00 02/19/18 12:00 Temperature 97.6 F 97.4 F L Pulse Rate 75 76 Respiratory Rate 20 20 Blood Pressure 146/80 H 160/81 H Pulse Oximetry 90 L 90 L Intake & Output 02/18/18 02/19/18 02/19/18 18:59 06:59 18:59 Intake Total 1350 / 1350 1013 / 1013 350 / 350 Output Total 900 / 900 Balance 450 / 450 1013 / 1013 350 / 350 Intake: IV 350 / 350 1013 / 1013 350 / 350 D5W/LR + KCL 20 mEq Inj 1,000 763 / 763 ML @ 30 mls/hr IV.CONT .Q24H YRIS Rx#:[id number] KCl 10 mEq Premix Inj 20 meq In 100 / 100 200 ml @ 100 mls/hr IV.SIG UNSCH YRIS Rx#:[id number] KCl 20 mEq Premix Inj 20 meq In 100 / 100 100 ml @ 50 mls/hr IV.SIG UNSCH PRN Rx#:[id number] Vancomycin Inj 1,000 MG In NS 250 / 250 250 / 250 250 / 250 Inj 250 ML @ 250 mls/hr IV.SIG Q12H YRIS Rx#:[id number] Oral 1000 / 1000 Output: Urine 700 / 700 Stool 200 / 200 Other: # Incontinent Voids 1 Date of Last Bowel Movement 02/18/18 GENERAL: Frail elderly WM, weak, mild sob SKIN: Warm and dry. HEAD: Normocephalic. EYES: No scleral icterus. No injection or drainage. NECK: Supple, trachea midline. No JVD or lymphadenopathy. CARDIOVASCULAR: Regular rate and rhythm without murmurs, gallops, or rubs. RESPIRATORY: Breath sounds equal bilaterally. No accessory muscle use. Scattered rales GASTROINTESTINAL: Abdomen soft, non-tender, nondistended. Has Colostomy MUSCULOSKELETAL: No cyanosis, or edema. BACK: Nontender without obvious deformity. No CVA tenderness. - Urinary Catheter Management Indwelling Urethral Catheter Cath placed during this visit: yes Reason for continuing: Other continuation reason Insertion date: 02/13/18 Insertion time: 16:01 Assessment and Plan - Plan IMPRESSION: 1. Basilar pneumonia. He has an methicillin-resistant Staphylococcus aureus infection. 2. Chronic obstructive pulmonary disease. 3. Nicotine use. 4. Colorectal cancer. 5. Status post diverting colostomy. PLAN: Cont vancomycin Aerosol nebs Supplement 02 monitor Lytes Oxycodone for Pain. Encourage PO Tessalon 200 mg tid
[2018-02-19] MEDS: Benzonatate 100 MG Capsule PO SCH ×2 (17:49→22:09)
[2018-02-20] MEDS: Vancomycin Inj 1,500 MG in Sodium Chlor 0.9% Inj 500 ML IV.SIG SCH ×2 (02:16→15:27)
[2018-02-20] MEDS: POTASSIUM CHLORIDE IV.SIG SCH ×3 (03:30→22:20)
[2018-02-20] MEDS: Benzonatate 100 MG Capsule PO SCH ×3 (05:34→22:19)
[2018-02-20 05:39] LABS: Glomerular Filtration Rate Greater Than 89 mL/min (>89)
--- NOTE | 2018-02-20 06:56 | P.PNCS ---
Subjective Colorectal Surgery Post Op Day #: 7 Interval history: Pt says he is still coughing and now having wound drainage of serosanguinous fluid. No pain Objective Result Diagrams: 02/19/18 09:18 02/20/18 04:09 Objective Remarks: Abd: No tenderness. Upper wound Q-tip in wound shows copious serosanguinous fluid c/w fascial dehiscence due to coughing. Assessment and Plan - Assessment (1) Colostomy care Code(s): Z43.3 - Encounter for attention to colostomy Status: Acute - Plan Redress wound as 4x4s are saturated with fluid Relace binder with one with no hole Appreciate Pulmonary. Continue Vancomycin Possible NHP Replete KCl
[2018-02-20] MEDS: Potassium Chloride 10 MEQ ER Capsule PO SCH ×3 (09:30→17:06)
[2018-02-20] MEDS: Pantoprazole Inj 40 MG Vial IV.PUSH SCH (09:31)
--- NOTE | 2018-02-20 18:13 | P.PNPL ---
Subjective Interval history: 72 YOWM with Colorectal ca, s/p diverting colostomy has Basal infilterates Sputum MRSA Cough with copius sputum, feels exhausted No Fever Little better rested today Physical Exam Vital signs: Vital Signs 02/19/18 18:31 02/19/18 20:00 02/19/18 20:49 Temperature 97.8 F Pulse Rate 80 77 Respiratory Rate 18 18 Blood Pressure 175/81 H Pulse Oximetry 96 96 02/20/18 00:00 02/20/18 04:00 02/20/18 08:00 Temperature 97.6 F 98.7 F 98.1 F Pulse Rate 81 89 74 Respiratory Rate 18 19 17 Blood Pressure 152/81 H 155/75 H 150/81 H Pulse Oximetry 94 L 94 L 93 L 02/20/18 12:00 02/20/18 16:00 02/20/18 17:51 Temperature 97.6 F 98.1 F Pulse Rate 74 77 Respiratory Rate 19 20 Blood Pressure 135/75 161/83 H Pulse Oximetry 95 91 L 91 L Intake & Output 02/19/18 02/20/18 02/20/18 18:59 06:59 18:59 Intake Total 1385 / 1385 1958 / 1958 Output Total 750 / 750 950 / 950 Balance 635 / 635 1008 / 1008 Weight 60.7 kg Intake: IV 965 / 965 1478 / 1478 D5W/LR + KCL 20 mEq Inj 1,000 763 / 763 ML @ 30 mls/hr IV.CONT .Q24H YRIS Rx#:[id number] KCl 10 mEq Premix Inj 20 meq In 200 / 200 200 / 200 200 ml @ 100 mls/hr IV.SIG UNSCH YRIS Rx#:[id number] Vancomycin Inj 1,000 MG In NS 250 / 250 Inj 250 ML @ 250 mls/hr IV.SIG Q12H YRIS Rx#:[id number] Vancomycin Inj 1,500 MG In NS 515 / 515 515 / 515 Inj 500 ML @ 250 mls/hr IV.SIG Q12H YRIS Rx#:[id number] Oral 420 / 420 480 / 480 Output: Urine 750 / 750 850 / 850 Stool Amount (Stoma) 100 / 100 Right Upper Abdomen 100 / 100 Other: Date of Last Bowel Movement 02/19/18 GENERAL: Frail elderly WM, mild sob SKIN: Warm and dry. HEAD: Normocephalic. EYES: No scleral icterus. No injection or drainage. NECK: Supple, trachea midline. No JVD or lymphadenopathy. CARDIOVASCULAR: Regular rate and rhythm without murmurs, gallops, or rubs. RESPIRATORY: Breath sounds equal bilaterally. No accessory muscle use. GASTROINTESTINAL: Abdomen soft, non-tender, nondistended. has colostomy MUSCULOSKELETAL: No cyanosis, or edema. BACK: Nontender without obvious deformity. No CVA tenderness. - Urinary Catheter Management Indwelling Urethral Catheter Cath placed during this visit: yes Reason for continuing: Other continuation reason Insertion date: 02/13/18 Insertion time: 16:01 Assessment and Plan - Plan IMPRESSION: 1. Basilar pneumonia. He has an methicillin-resistant Staphylococcus aureus infection. 2. Chronic obstructive pulmonary disease. 3. Nicotine use. 4. Colorectal cancer. 5. Status post diverting colostomy. PLAN: Cont vancomycin Aerosol nebs Supplement 02 monitor Lytes Oxycodone for Pain. Encourage PO Tessalon 200 mg tid
[2018-02-20] MEDS: KCL 20 mEq/D5W/LR Inj 1,000 ML IV.CONT SCH (23:46)
[2018-02-21] MEDS ORDERED: Pharmacy Ordered Lab Info OTHER ONE ×2 (01:45→13:45)
[2018-02-21] MEDS: Vancomycin Inj 1,500 MG in Sodium Chlor 0.9% Inj 500 ML IV.SIG SCH ×2 (02:09→15:26)
[2018-02-21] MEDS: Benzonatate 100 MG Capsule PO SCH ×3 (05:53→21:58)
[2018-02-21] MEDS: POTASSIUM CHLORIDE IV.SIG SCH (07:53)
[2018-02-21] MEDS: Pantoprazole Inj 40 MG Vial IV.PUSH SCH (09:51)
[2018-02-21] MEDS: Potassium Chloride 10 MEQ ER Capsule PO SCH ×3 (09:51→18:10)
--- NOTE | 2018-02-21 12:09 | P.PN ---
Subjective Interval history: POD#8 s/p ex lap, hua, diverting loop transverse colostomy MRSA pneumonia comfortable Physical Exam Vital signs: Vital Signs 02/20/18 16:00 02/20/18 17:51 02/20/18 20:00 Temperature 98.1 F 97.6 F Pulse Rate 77 81 Respiratory Rate 20 18 Blood Pressure 161/83 H 130/77 Pulse Oximetry 91 L 91 L 93 L 02/21/18 00:00 02/21/18 08:00 Temperature 97.4 F L 98.0 F Pulse Rate 77 83 Respiratory Rate 19 18 Blood Pressure 133/72 151/71 H Pulse Oximetry 94 L 98 Intake & Output 02/20/18 02/21/18 02/21/18 18:59 06:59 18:59 Intake Total 1365 / 1365 2435 / 2435 200 / 200 Output Total 800 / 800 Balance 1365 / 1365 1635 / 1635 200 / 200 Weight 61.1 kg Intake: IV 715 / 715 1715 / 1715 200 / 200 D5W/LR + KCL 20 mEq Inj 1,000 1000 / 1000 ML @ 30 mls/hr IV.CONT .Q24H YRIS Rx#:[id number] KCl 10 mEq Premix Inj 20 meq In 200 / 200 200 / 200 200 / 200 200 ml @ 100 mls/hr IV.SIG UNSCH YRIS Rx#:[id number] Vancomycin Inj 1,500 MG In NS 515 / 515 515 / 515 Inj 500 ML @ 250 mls/hr IV.SIG Q12H YRIS Rx#:[id number] Oral 650 / 650 720 / 720 Output: Urine 600 / 600 Stool Amount (Stoma) 200 / 200 Right Upper Abdomen 200 / 200 Other: # Voids 5 Date of Last Bowel Movement 02/20/18 - Routine Respiratory Exam Comments: Breathing comfortably with oxygen - Routine Abdominal Exam Comments: Soft, nondistended, tender wound clean stoma pink, functional - Urinary Catheter Management Indwelling Urethral Catheter Cath placed during this visit: yes Reason for continuing: Other continuation reason Insertion date: 02/13/18 Insertion time: 16:01 Results - Labs CBC & Chem 7: 02/19/18 09:18 02/21/18 04:37 Laboratory Results - last 24 hr 02/20/18 02/21/18 02/21/18 20:14 02:00 04:37 Potassium 3.0 L 3.3 L Vancomycin Trough Cancelled Assessment and Plan - Assessment (1) Colostomy care Code(s): Z43.3 - Encounter for attention to colostomy Status: Acute Plan: Await resolution of pneumonia for discharge
[2018-02-21] MEDS: KCL 20 mEq/D5W/LR Inj 1,000 ML IV.CONT SCH ×2 (22:00→23:17)
[2018-02-22] MEDS: Vancomycin Inj 1,500 MG in Sodium Chlor 0.9% Inj 500 ML IV.SIG SCH ×2 (01:03→14:31)
[2018-02-22] MEDS: Benzonatate 100 MG Capsule PO SCH ×3 (06:12→22:07)
[2018-02-22 06:17] LABS: Glomerular Filtration Rate Greater Than 89 mL/min (>89)
[2018-02-22] MEDS: Pantoprazole Inj 40 MG Vial IV.PUSH SCH (08:36)
[2018-02-22] MEDS: Potassium Chloride 10 MEQ ER Capsule PO SCH ×3 (08:36→18:13)
--- NOTE | 2018-02-22 12:26 | P.PN ---
Subjective Interval history: POD#9 comfortable, tired Physical Exam Vital signs: Vital Signs 02/21/18 16:00 02/21/18 20:00 02/22/18 00:00 Temperature 98.0 F 97.1 F L 97.1 F L Pulse Rate 76 64 64 Respiratory Rate 16 20 20 Blood Pressure 126/74 144/78 H 147/78 H Pulse Oximetry 98 96 96 Intake & Output 02/21/18 02/22/18 02/22/18 18:59 06:59 18:59 Intake Total 1800 / 1800 3510 / 3510 Output Total 950 / 950 400 / 400 Balance 850 / 850 3110 / 3110 Weight 61 kg Intake: IV 200 / 200 3030 / 3030 D5W/LR + KCL 20 mEq Inj 1,000 2000 / 2000 ML @ 30 mls/hr IV.CONT .Q24H YRIS Rx#:[id number] KCl 10 mEq Premix Inj 20 meq In 200 / 200 200 ml @ 100 mls/hr IV.SIG UNSCH YRIS Rx#:[id number] Vancomycin Inj 1,500 MG In NS 1030 / 1030 Inj 500 ML @ 250 mls/hr IV.SIG Q12H YRIS Rx#:[id number] Oral 1600 / 1600 480 / 480 Output: Urine 600 / 600 Stool 200 / 200 Stool Amount (Stoma) 350 / 350 200 / 200 Right Upper Abdomen 350 / 350 200 / 200 Other: Date of Last Bowel Movement 02/20/18 02/22/18 # Bowel Movements 2 - Routine Abdominal Exam Comments: Abdomen soft, nondistended, tender Wounds clean Stoma pink, functional - Urinary Catheter Management Indwelling Urethral Catheter Cath placed during this visit: yes Reason for continuing: Other continuation reason Insertion date: 02/13/18 Insertion time: 16:01 Results - Labs CBC & Chem 7: 02/19/18 09:18 02/22/18 05:15 Laboratory Results - last 24 hr 02/21/18 02/21/18 02/22/18 14:35 14:35 05:15 Potassium 3.4 L Creatinine 0.55 L Estimated GFR Greater than 89 Vancomycin Trough 15.5 H Assessment and Plan - Assessment (1) Colostomy care Code(s): Z43.3 - Encounter for attention to colostomy Status: Acute Plan: Some mild bleeding from incision secondary to coughing should stop on own, if not will treat with silver nitrate Await resolution of pneumonia for discharge to rehab
[2018-02-23] MEDS: Vancomycin Inj 1,500 MG in Sodium Chlor 0.9% Inj 500 ML IV.SIG SCH ×2 (01:07→13:39)
[2018-02-23] MEDS: KCL 20 mEq/D5W/LR Inj 1,000 ML IV.CONT SCH ×2 (01:08→22:57)
[2018-02-23] MEDS: Benzonatate 100 MG Capsule PO SCH ×3 (06:22→21:09)
[2018-02-23] MEDS: Pantoprazole Inj 40 MG Vial IV.PUSH SCH (08:20)
[2018-02-23] MEDS: Potassium Chloride 10 MEQ ER Capsule PO SCH ×3 (08:22→17:16)
--- NOTE | 2018-02-23 09:01 | XR ---
EXAM DATE: 02/23/2018 12:00 AM EDT AGE/SEX: 72 years / Male INDICATIONS: . Short of breath. CLINICAL DATA: This is the patient's subsequent encounter. Patient reports that signs and symptoms h ave been present for 2 weeks and indicates a pain score of 0/10. MEDICAL/SURGICAL HISTORY: . Carcinoma, rectal . Rectal surgery. COMPARISON: [facility] [place], CHEST 2V PA&LAT, 02/19/2018. . FINDINGS: PA and lateral views of the chest demonstrate hyperinflation. Minimal density seen within the right m iddle lobe. Left lung clear. Heart normal in size. The cardiomediastinal contours are unremarkable. O sseous structures are intact. Degenerative changes and kyphosis thoracic spine. CONCLUSION: 1. Minimal density in the right middle lobe could be atelectasis or minimal infiltrate. 2. Hyperinflation characteristic of COPD. Electronically signed by: López Negro MD 02/23/2018 9:00 AM EDT
--- NOTE | 2018-02-23 11:29 | P.PNCS ---
Subjective Colorectal Surgery Post Op Day #: 10 Interval history: No N or V. Stooling. Wound still with sero-sanguinous drainage c/w mild fascial dehiscence due to coughing. Dressings wet, binder on. Objective Result Diagrams: 02/19/18 09:18 02/22/18 05:15 Objective Remarks: Abd: No tenderness. Upper wound Q-tip in wound shows sero sanguinous drainage. No pus Assessment and Plan - Assessment (1) Colostomy care Code(s): Z43.3 - Encounter for attention to colostomy Status: Acute - Plan Redress wound as 4x4s are saturated with fluid Replaced binder with one with no hole Appreciate Pulmonary. Dr Mejia saw pt over weekend. Continue Vancomycin Much improved. D/C when on oral meds and cleared by Dr Brand Possible NVP Continue stoma teaching
--- NOTE | 2018-02-23 17:46 | P.PNWCN ---
Wound Care Nurse Consult Description: Late entry from 02/20/2018: Patient seen for follow up of RUQ colostomy management and teaching Communicated with: Late entry from 02/20/2018:Patient and [employer] Tonia Recommendation: Late entry from 02/20/2018:Empty colostomy pouch when 1/3 to 1/2 full. Change ostomy appliance every 5 to 7 days or PRN if leaking. Do not tape adhesive edges of colostomy appliance to seal. Please order 2 3/4 moldable ostomy appliances if out of ostomy appliances in room. Bowel Diversion Stoma - Bowel Stoma Right Upper Abdomen Stoma Edema: Yes Stoma Diameter: 45 (mm) Stoma Appearance: Beefy Red, Protruding, Round Loop Supporting Berhane: No Collection Device: Two-piece Drainage Description: Liquid Wafer Size: 2 3/4 moldable accordion Stoma Care: Pouch and Wafer Changed (late entry from :02/20/2018) Aleyda-Stomal Skin Appearance: Irritated and Inflammed Aleyda-Stomal Surrounding Tissue Sensation Description: Burning - Additional Information Additional Information: Late entry from 02/20/2018: Patient seen for follow up colostomy teaching and stoma assessment. Patient's ostomy appliance is leaking. Ward Maid removed leaking appliance to reveal red round stoma measuring 1 3/4 inches or 45 mm in diameter. Peristomal irritation is noted between 2 and 4 o'clock. Cleansed peristomal skin with warm water and wash cloth and patted dry. Peristomal skin irritation with then encrusted using stoma powder and then Cavilon skin barrier film spray. Chalino seal was applied to uneven skin areas to peristomal skin. Applied 2 3/4 ostomy appliance. Patient tolerated ostomy appliance change well. Patient was gievn step by step verbal instruction during ostomy appliance change.
--- NOTE | 2018-02-23 17:50 | P.PNWCN ---
Wound Care Nurse Consult Description: Patient seen for follow up of RUQ colostomy management and teaching Communicated with: Dajuan montanez and patient Recommendation: Empty colostomy pouch when 1/3 to 1/2 full. Change ostomy appliance every 5 to 7 days or PRN if leaking. Do not tape adhesive edges of colostomy appliance to seal. Please order 2 3/4 moldable ostomy appliances if out of ostomy appliances in room. Bowel Diversion Stoma - Bowel Stoma Right Upper Abdomen Stoma Edema: Yes Stoma Diameter: 45 (mm) Stoma Appearance: Beefy Red, Protruding, Round Loop Supporting Berhane: No Collection Device: Two-piece Drainage Description: Liquid, Brown Wafer Size: 2 3/4 moldable Aleyda-Stomal Surrounding Tissue Sensation Description: No Symptoms - Additional Information Additional Information: Patient seen today for continued ostomy management and support, full note to follow.
--- NOTE | 2018-02-23 19:50 | P.PNPL ---
Subjective Interval history: 72 YOWM with Colorectal ca, s/p diverting colostomy has Basal infilterates Sputum MRSA Cough with copius sputum, feels exhausted No Fever Feels stronger, appetite poor Physical Exam Vital signs: Vital Signs 02/22/18 20:00 02/23/18 00:00 02/23/18 08:00 Temperature 98.4 F 98.4 F 97.1 F L Pulse Rate 61 66 64 Respiratory Rate 16 16 20 Blood Pressure 140/71 155/79 H 142/70 H Pulse Oximetry 97 98 96 02/23/18 11:58 02/23/18 16:00 Temperature 97.1 F L 97.5 F L Pulse Rate 58 L 62 Respiratory Rate 18 18 Blood Pressure 119/58 L 139/69 Pulse Oximetry 92 L 97 Intake & Output 02/23/18 02/23/18 02/24/18 06:59 18:59 06:59 Intake Total 1278 / 1278 1195 / 1195 Output Total 1250 / 1250 725 / 725 Balance 470 / 470 Weight 61.8 kg Intake: IV 1278 / 1278 515 / 515 D5W/LR + KCL 20 mEq Inj 1,000 763 / 763 ML @ 30 mls/hr IV.CONT .Q24H YRIS Rx#:[id number] Vancomycin Inj 1,500 MG In NS 515 / 515 515 / 515 Inj 500 ML @ 250 mls/hr IV.SIG Q12H YRIS Rx#:[id number] Oral 680 / 680 Output: Urine 1100 / 1100 625 / 625 Urine/Stool Mix 100 / 100 Stool Amount (Stoma) 150 / 150 Right Upper Abdomen 150 / 150 GENERAL: Frail elderly WM, NAD SKIN: Warm and dry. HEAD: Normocephalic. EYES: No scleral icterus. No injection or drainage. NECK: Supple, trachea midline. No JVD or lymphadenopathy. CARDIOVASCULAR: Regular rate and rhythm without murmurs, gallops, or rubs. RESPIRATORY: Breath sounds equal bilaterally. No accessory muscle use. GASTROINTESTINAL: Abdomen soft, non-tender, nondistended. Has colostomy MUSCULOSKELETAL: No cyanosis, or edema. BACK: Nontender without obvious deformity. No CVA tenderness. - Urinary Catheter Management Indwelling Urethral Catheter Cath placed during this visit: yes Reason for continuing: Other continuation reason Insertion date: 02/13/18 Insertion time: 16:01 Assessment and Plan - Plan IMPRESSION: 1. Basilar pneumonia. He has an methicillin-resistant Staphylococcus aureus infection. 2. Chronic obstructive pulmonary disease. 3. Nicotine use. 4. Colorectal cancer. 5. Status post diverting colostomy. PLAN: Cont vancomycin Aerosol nebs Supplement 02 monitor Lytes Oxycodone for Pain. Encourage PO Tessalon 200 mg tid Encourage PO
[2018-02-24] MEDS: Vancomycin Inj 1,500 MG in Sodium Chlor 0.9% Inj 500 ML IV.SIG SCH ×2 (01:26→13:44)
[2018-02-24] MEDS: Benzonatate 100 MG Capsule PO SCH ×3 (05:19→21:14)
[2018-02-24] MEDS: Pantoprazole Inj 40 MG Vial IV.PUSH SCH (08:28)
[2018-02-24] MEDS: Potassium Chloride 10 MEQ ER Capsule PO SCH ×3 (08:29→17:38)
--- NOTE | 2018-02-24 13:10 | P.PNCS ---
Subjective Colorectal Surgery Post Op Day #: 11 Interval history: Diuresis last night. Objective Result Diagrams: 02/19/18 09:18 02/22/18 05:15 Objective Remarks: Abd: No tenderness. Upper wound with sero sanguinous Assessment and Plan - Assessment (1) Colostomy care Code(s): Z43.3 - Encounter for attention to colostomy Status: Acute - Plan Redress wound as 4x4s are saturated with fluid Replaced binder with one with no hole Continue Vancomycin Much improved. D/C when on oral meds and cleared by Dr Brand Possible NHP Continue stoma teaching Appreciate Dr Brand input
[2018-02-24] MEDS ORDERED: Pharmacy Ordered Lab Info OTHER ONE (13:45)
--- NOTE | 2018-02-24 18:29 | P.PNPL ---
Subjective Interval history: 72 YOWM with Colorectal ca, s/p diverting colostomy has Basal infilterates Sputum MRSA Cough with sputum, feels exhausted No Fever Ambulates in hallway Physical Exam Vital signs: Vital Signs 02/23/18 20:00 02/24/18 00:00 02/24/18 04:00 Temperature 97.6 F 97.7 F Pulse Rate 70 65 Respiratory Rate 17 18 Blood Pressure 141/73 H 139/74 Pulse Oximetry 96 97 95 02/24/18 05:21 02/24/18 05:23 02/24/18 07:49 Temperature 97.4 F L Pulse Rate 64 Respiratory Rate 19 Blood Pressure 149/73 H Pulse Oximetry 89 L 93 L 89 L 02/24/18 09:00 02/24/18 11:36 02/24/18 16:00 Temperature 97.5 F L 97.4 F L Pulse Rate 60 67 Respiratory Rate 20 18 Blood Pressure 139/66 130/75 Pulse Oximetry 93 L 94 L 95 Intake & Output 02/23/18 02/24/18 02/24/18 18:59 06:59 18:59 Intake Total 1195 / 1195 1755 / 1755 515 / 515 Output Total 725 / 725 1425 / 1425 Balance 470 / 470 330 / 330 515 / 515 Weight 61.3 kg Intake: IV 515 / 515 1515 / 1515 515 / 515 D5W/LR + KCL 20 mEq Inj 1,000 1000 / 1000 ML @ 30 mls/hr IV.CONT .Q24H YRIS Rx#:[id number] Vancomycin Inj 1,500 MG In NS 515 / 515 515 / 515 515 / 515 Inj 500 ML @ 250 mls/hr IV.SIG Q12H YRIS Rx#:[id number] Oral 680 / 680 240 / 240 Output: Urine 625 / 625 825 / 825 Urine/Stool Mix 100 / 100 Stool Amount (Stoma) 600 / 600 Right Upper Abdomen 600 / 600 Other: Date of Last Bowel Movement 02/23/18 GENERAL: frail elderly wm, NAD SKIN: Warm and dry. HEAD: Normocephalic. EYES: No scleral icterus. No injection or drainage. NECK: Supple, trachea midline. No JVD or lymphadenopathy. CARDIOVASCULAR: Regular rate and rhythm without murmurs, gallops, or rubs. RESPIRATORY: Breath sounds equal bilaterally. No accessory muscle use. GASTROINTESTINAL: Abdomen soft, non-tender, nondistended has colostomy. MUSCULOSKELETAL: No cyanosis, or edema. BACK: Nontender without obvious deformity. No CVA tenderness. - Urinary Catheter Management Indwelling Urethral Catheter Cath placed during this visit: yes Reason for continuing: Other continuation reason Insertion date: 02/13/18 Insertion time: 16:01 Assessment and Plan - Plan IMPRESSION: 1. Basilar pneumonia. He has an methicillin-resistant Staphylococcus aureus infection. 2. Chronic obstructive pulmonary disease. 3. Nicotine use. 4. Colorectal cancer. 5. Status post diverting colostomy. PLAN: Cont vancomycin Aerosol nebs Supplement 02 monitor Lytes Oxycodone for Pain. Encourage PO Tessalon 200 mg tid Encourage PO Ambulate with assitance.
[2018-02-24] MEDS: KCL 20 mEq/D5W/LR Inj 1,000 ML IV.CONT SCH (22:25)
[2018-02-25] MEDS: Vancomycin Inj 1,250 MG in Sodium Chlor 0.9% Inj 250 ML IV.SIG SCH ×2 (01:08→13:59)
[2018-02-25] MEDS: Benzonatate 100 MG Capsule PO SCH ×3 (05:21→21:30)
[2018-02-25 08:09] LABS: Glomerular Filtration Rate Greater Than 89 mL/min (>89)
[2018-02-25] MEDS: Potassium Chloride 10 MEQ ER Capsule PO SCH ×3 (08:43→17:37)
[2018-02-25] MEDS: Pantoprazole Inj 40 MG Vial IV.PUSH SCH (08:45)
--- NOTE | 2018-02-25 08:50 | P.PNCS ---
Subjective Colorectal Surgery Post Op Day #: 12 Interval history: Day 9 Vancomycin. Feels better Objective Result Diagrams: 02/19/18 09:18 02/25/18 06:11 Objective Remarks: Abd: No tenderness. Upper wound with sero sanguinous. Stoma working well Assessment and Plan - Assessment (1) Colostomy care Code(s): Z43.3 - Encounter for attention to colostomy Status: Acute - Plan Redress wound as 4x4s are saturated with fluid Continue Vancomycin Much improved. D/C when on oral meds and cleared by Dr Brand Continue stoma teaching Appreciate Dr Brand input
[2018-02-25 11:03] LABS: Baso # (Auto) 0.3 th/mm3 (0.0-0.2); Baso % (Auto) 4.9 % (0.0-2.0); Eos # (Auto) 0.1 th/mm3 (0.0-0.4); Eos % (Auto) 2.1 % (0.0-4.0); Hematocrit 27.5 % (39.0-51.0); Hemoglobin 9.3 gm/dL (13.0-17.0); Lymph # (Auto) 0.5 th/mm3 (1.0-4.8); Lymph % (Auto) 9.7 % (9.0-44.0); Mean Corpuscular HGB Conc 33.9 % (32.0-36.0); Mean Corpuscular Hemoglobin 30.1 pg (27.0-34.0); Mean Corpuscular Volume 88.7 fL (80.0-100.0); Mean Platelet Volume 9.4 fL (7.0-11.0); Mono # (Auto) 1.5 th/mm3 (0.0-0.9); Mono % (Auto) 27.3 % (0.0-8.0); Neut # (Auto) 3.1 th/mm3 (1.8-7.7); Platelet Count 290 th/mm3 (150-450); Red Cell Distribution Width 15.8 % (11.6-17.2); White Blood Count 5.5 th/mm3 (4.0-11.0)
[2018-02-25 11:18] LABS: Anion Gap 8 meq/L (5-15); Blood Urea Nitrogen 3 mg/dL (7-18); Calcium 8.2 mg/dL (8.5-10.1); Carbon Dioxide 29.9 meq/L (21.0-32.0); Chloride 102 meq/L (98-107); Glomerular Filtration Rate Greater Than 89 mL/min (>89); Glucose,Random 99 mg/dL (74-106); Sodium 140 meq/L (136-145)
[2018-02-25 11:22] LABS: Potassium 2.9 meq/L (3.5-5.1)
[2018-02-25] MEDS: POTASSIUM CHLORIDE IV.SIG SCH (11:42)
--- NOTE | 2018-02-25 20:07 | P.PNPL ---
Subjective Interval history: 72 YOWM with Colorectal ca, s/p diverting colostomy has Basal infilterates Sputum MRSA Cough with sputum, feels exhausted No Fever Ambulates in hallway Feels better Physical Exam Vital signs: Vital Signs 02/25/18 00:00 02/25/18 07:26 02/25/18 12:00 Temperature 97.4 F L 97.8 F 97.9 F Pulse Rate 65 67 70 Respiratory Rate 18 18 18 Blood Pressure 132/72 155/72 H 140/76 Pulse Oximetry 93 L 96 90 L 02/25/18 16:00 Temperature 97.6 F Pulse Rate 68 Respiratory Rate 18 Blood Pressure 142/69 H Pulse Oximetry 90 L Intake & Output 02/25/18 02/25/18 02/26/18 06:59 18:59 06:59 Intake Total 1262.5 / 1262.5 1422.5 / 1422.5 Output Total 1200 / 1200 950 / 950 Balance 62.5 / 62.5 472.5 / 472.5 Weight 61.8 kg Intake: IV 1262.5 / 1262.5 462.5 / 462.5 D5W/LR + KCL 20 mEq Inj 1,000 1000 / 1000 ML @ 30 mls/hr IV.CONT .Q24H YRIS Rx#:[id number] KCl 10 mEq Premix Inj 20 meq In 200 / 200 200 ml @ 100 mls/hr IV.SIG UNSCH YRIS Rx#:[id number] Vancomycin Inj 1,250 MG In NS 262.5 / 262.5 262.5 / 262.5 Inj 250 ML @ 250 mls/hr IV.SIG Q12H YRIS Rx#:[id number] Oral 960 / 960 Output: Urine 1050 / 1050 800 / 800 Stool Amount (Stoma) 150 / 150 150 / 150 Right Upper Abdomen 150 / 150 150 / 150 Other: Date of Last Bowel Movement 02/24/18 02/25/18 GENERAL: Elderly WM,NAD SKIN: Warm and dry. HEAD: Normocephalic. EYES: No scleral icterus. No injection or drainage. NECK: Supple, trachea midline. No JVD or lymphadenopathy. CARDIOVASCULAR: Regular rate and rhythm without murmurs, gallops, or rubs. RESPIRATORY: Breath sounds equal bilaterally. No accessory muscle use. GASTROINTESTINAL: Abdomen soft, non-tender, nondistended. has colostomy MUSCULOSKELETAL: No cyanosis, or edema. BACK: Nontender without obvious deformity. No CVA tenderness. - Urinary Catheter Management Indwelling Urethral Catheter Cath placed during this visit: yes Reason for continuing: Other continuation reason Insertion date: 02/13/18 Insertion time: 16:01 Assessment and Plan - Plan IMPRESSION: 1. Basilar pneumonia. He has an methicillin-resistant Staphylococcus aureus infection. 2. Chronic obstructive pulmonary disease. 3. Nicotine use. 4. Colorectal cancer. 5. Status post diverting colostomy. PLAN: Cont vancomycin Aerosol nebs Supplement 02 monitor Lytes Oxycodone for Pain. Encourage PO Tessalon 200 mg tid Encourage PO Ambulate with assitance. Rpt sp culture CXR in AM and decide to stop vanco
[2018-02-26] MEDS: KCL 20 mEq/D5W/LR Inj 1,000 ML IV.CONT SCH ×2 (01:56→22:25)
[2018-02-26] MEDS: Vancomycin Inj 1,250 MG in Sodium Chlor 0.9% Inj 250 ML IV.SIG SCH ×2 (01:57→14:57)
[2018-02-26] MEDS: Benzonatate 100 MG Capsule PO SCH ×3 (06:09→21:54)
--- NOTE | 2018-02-26 08:24 | XR ---
EXAM DATE: 02/26/2018 8:00 AM EDT AGE/SEX: 72 years / Male INDICATIONS: Evaluate for pneumonia. CLINICAL DATA: This is the patient's subsequent encounter. Patient reports that signs and symptoms h ave been present for 3 days and indicates a pain score of 0/10. MEDICAL/SURGICAL HISTORY: Carcinoma, rectal. None. COMPARISON: [facility] [place], CHEST 2V PA&LAT, 02/23/2018. [facility] [place], CT CHEST W CONTRAST, 02/11/2018. . FINDINGS: A single AP view of the chest demonstrates hyperinflation. Right upper lobe density. Several nodules in the right mid to lower lung. Left lung appears relatively clear. Tortuous thoracic aorta. The card iomediastinal contours are unremarkable. Osseous structures are intact. CONCLUSION: 1. Right upper lobe density likely infiltrate. 2. Several right sided lung nodules likely metastatic disease. Electronically signed by: López Negro MD 02/26/2018 8:23 AM EDT
--- NOTE | 2018-02-26 08:49 | P.PNCS ---
Subjective Colorectal Surgery Post Op Day #: 13 Interval history: Pt comfortable on Room air. No N or V. Stooling Sputum C&S pending. CxR ? improved Objective Result Diagrams: 02/25/18 10:10 02/25/18 23:54 Objective Remarks: Abd: No tenderness. Upper wound with sero-sanguinous, small amounts now. Stoma working well Assessment and Plan - Assessment (1) Colostomy care Code(s): Z43.3 - Encounter for attention to colostomy Status: Acute - Plan Redress wound as 4x4s are saturated with fluid Much improved. D/C when on oral meds and cleared by Dr Brand Appreciate Dr Brand input D/C planning. [facility] for colostomy supplies and teaching
[2018-02-26] MEDS: Pantoprazole Inj 40 MG Vial IV.PUSH SCH (09:30)
[2018-02-26] MEDS: Potassium Chloride 10 MEQ ER Capsule PO SCH ×3 (09:30→17:27)
[2018-02-26] MEDS ORDERED: Pharmacy Ordered Lab Info OTHER ONE (13:45)
--- NOTE | 2018-02-26 16:38 | P.PNPL ---
Subjective Interval history: 72 YOWM with Colorectal ca, s/p diverting colostomy has Basal infilterates Sputum MRSA Cough with sputum, feels exhausted No Fever Ambulates in hallway CXR small infilterates, ? lung nodules Physical Exam Vital signs: Vital Signs 02/25/18 20:00 02/26/18 00:00 02/26/18 08:00 Temperature 97.4 F L 97 F L 97.1 F L Pulse Rate 70 67 63 Respiratory Rate 18 17 17 Blood Pressure 133/70 151/80 H 134/79 Pulse Oximetry 93 L 94 L 92 L 02/26/18 12:00 Temperature 97.9 F Pulse Rate 69 Respiratory Rate 17 Blood Pressure 139/81 Pulse Oximetry 94 L Intake & Output 02/25/18 02/26/18 02/26/18 18:59 06:59 18:59 Intake Total 1422.5 / 1422.5 862.5 / 862.5 Output Total 950 / 950 1000 / 1000 Balance 472.5 / 472.5 -137.5 / -137.5 Weight 61.3 kg Intake: IV 462.5 / 462.5 862.5 / 862.5 D5W/LR + KCL 20 mEq Inj 1,000 600 / 600 ML @ 30 mls/hr IV.CONT .Q24H YRIS Rx#:[id number] KCl 10 mEq Premix Inj 20 meq In 200 / 200 200 ml @ 100 mls/hr IV.SIG UNSCH YRIS Rx#:[id number] Vancomycin Inj 1,250 MG In NS 262.5 / 262.5 262.5 / 262.5 Inj 250 ML @ 250 mls/hr IV.SIG Q12H YRIS Rx#:[id number] Oral 960 / 960 Output: Urine 800 / 800 700 / 700 Stool 300 / 300 Stool Amount (Stoma) 150 / 150 Right Upper Abdomen 150 / 150 Other: Date of Last Bowel Movement 02/25/18 02/25/18 02/25/18 GENERAL: Elderly WM,NAD SKIN: Warm and dry. HEAD: Normocephalic. EYES: No scleral icterus. No injection or drainage. NECK: Supple, trachea midline. No JVD or lymphadenopathy. CARDIOVASCULAR: Regular rate and rhythm without murmurs, gallops, or rubs. RESPIRATORY: Breath sounds equal bilaterally. No accessory muscle use. GASTROINTESTINAL: Abdomen soft, non-tender, nondistended. Has colostomy MUSCULOSKELETAL: No cyanosis, or edema. BACK: Nontender without obvious deformity. No CVA tenderness. - Urinary Catheter Management Indwelling Urethral Catheter Cath placed during this visit: yes Reason for continuing: Other continuation reason Insertion date: 02/13/18 Insertion time: 16:01 Assessment and Plan - Plan IMPRESSION: 1. Basilar pneumonia. He has an methicillin-resistant Staphylococcus aureus infection. 2. Chronic obstructive pulmonary disease. 3. Nicotine use. 4. Colorectal cancer. 5. Status post diverting colostomy. PLAN: Cont vancomycin Aerosol nebs Supplement 02 monitor Lytes Oxycodone for Pain. Encourage PO Tessalon 200 mg tid Encourage PO Ambulate with assitance. Rpt sp culture
[2018-02-27] MEDS ORDERED: Pharmacy Ordered Lab Info OTHER ONE (01:45)
[2018-02-27] MEDS: Vancomycin Inj 1,250 MG in Sodium Chlor 0.9% Inj 250 ML IV.SIG SCH (01:50)
[2018-02-27] MEDS: Benzonatate 100 MG Capsule PO SCH ×3 (05:25→21:42)
[2018-02-27 07:07] LABS: Glomerular Filtration Rate Greater Than 89 mL/min (>89)
--- NOTE | 2018-02-27 07:34 | P.PNCS ---
Subjective Colorectal Surgery Post Op Day #: 14 Interval history: Pt not ambulating despite orders. Will consult PT. Colostomy functioning Objective Result Diagrams: 02/25/18 10:10 02/27/18 05:14 Objective Remarks: Abd: No tenderness. Upper wound with sero-sanguinous,mild redness, small amounts now. Stoma working well Assessment and Plan - Assessment (1) Colostomy care Code(s): Z43.3 - Encounter for attention to colostomy Status: Acute - Plan Redress wound as 4x4s are saturated with fluid D/C anytime OK with CRS,when on oral meds and cleared by Dr Brand Appreciate Dr Brand input D/C planning. [facility] for colostomy supplies and teaching Consult PT for aggressive ambulation
[2018-02-27] MEDS: Potassium Chloride 10 MEQ ER Capsule PO SCH ×3 (09:02→17:10)
[2018-02-27] MEDS: Pantoprazole Inj 40 MG Vial IV.PUSH SCH (09:03)
--- NOTE | 2018-02-27 11:39 | P.PNPL ---
Subjective Interval history: 72 YOWM with Colorectal ca, s/p diverting colostomy has Basal infilterates Sputum MRSA Cough with sputum, feels exhausted No Fever Ambulates in hallway Physical Exam Vital signs: Vital Signs 02/26/18 12:00 02/26/18 16:00 02/26/18 20:00 Temperature 97.9 F 97.3 F L 97.2 F L Pulse Rate 69 63 66 Respiratory Rate 17 17 17 Blood Pressure 139/81 151/70 H 138/65 Pulse Oximetry 94 L 93 L 94 L 02/27/18 00:00 02/27/18 08:00 Temperature 97.5 F L 97.8 F Pulse Rate 68 58 L Respiratory Rate 17 18 Blood Pressure 141/73 H 153/70 H Pulse Oximetry 95 94 L Intake & Output 02/26/18 02/27/18 02/27/18 18:59 06:59 18:59 Intake Total 762.5 / 762.5 2222.5 / 2222.5 Output Total 1175 / 1175 1550 / 1550 Balance -412.5 / -412.5 672.5 / 672.5 Weight 61.3 kg Intake: IV 262.5 / 262.5 1262.5 / 1262.5 D5W/LR + KCL 20 mEq Inj 1,000 1000 / 1000 ML @ 30 mls/hr IV.CONT .Q24H YRIS Rx#:[id number] Vancomycin Inj 1,250 MG In NS 262.5 / 262.5 262.5 / 262.5 Inj 250 ML @ 250 mls/hr IV.SIG Q12H YRIS Rx#:[id number] Oral 500 / 500 960 / 960 Output: Urine 1075 / 1075 1350 / 1350 Stool 100 / 100 Stool Amount (Stoma) 200 / 200 Right Upper Abdomen 200 / 200 Other: Date of Last Bowel Movement 02/25/18 02/26/18 02/26/18 GENERAL: Elderly wm, NAD SKIN: Warm and dry. HEAD: Normocephalic. EYES: No scleral icterus. No injection or drainage. NECK: Supple, trachea midline. No JVD or lymphadenopathy. CARDIOVASCULAR: Regular rate and rhythm without murmurs, gallops, or rubs. RESPIRATORY: Breath sounds equal bilaterally. No accessory muscle use. GASTROINTESTINAL: Abdomen soft, non-tender, nondistended. has colostomy MUSCULOSKELETAL: No cyanosis, or edema. BACK: Nontender without obvious deformity. No CVA tenderness. - Urinary Catheter Management Indwelling Urethral Catheter Cath placed during this visit: yes Reason for continuing: Other continuation reason Insertion date: 02/13/18 Insertion time: 16:01 Assessment and Plan - Plan IMPRESSION: 1. Basilar pneumonia. He has an methicillin-resistant Staphylococcus aureus infection. 2. Chronic obstructive pulmonary disease. 3. Nicotine use. 4. Colorectal cancer. 5. Status post diverting colostomy. PLAN: Aerosol nebs Supplement 02 monitor Lytes Oxycodone for Pain. Encourage PO Tessalon 200 mg tid Encourage PO Ambulate with assitance. Finished 10 days of vanco, feels better, no fever or leucocytosis Will DC Vanco
[2018-02-27] MEDS: KCL 20 mEq/D5W/LR Inj 1,000 ML IV.CONT SCH (20:19)
[2018-02-28] MEDS: KCL 20 mEq/D5W/LR Inj 1,000 ML IV.CONT SCH (00:29)
[2018-02-28] MEDS: Benzonatate 100 MG Capsule PO SCH ×2 (05:06→13:17)
[2018-02-28] MEDS: Potassium Chloride 10 MEQ ER Capsule PO SCH ×2 (08:31→12:30)
[2018-02-28] MEDS: Pantoprazole Inj 40 MG Vial IV.PUSH SCH (08:33)
[2018-02-28 08:37] VITALS: TEMP 97.6
[2018-02-28 12:54] VITALS: BP 109/68; PULSE 64; RESP 17; O2SAT 91
[2018-02-28] MEDS ORDERED: Pharmacy Ordered Lab Info OTHER ONE (13:45)
== END 2018-02-28 16:25 ==
LOC: PHED 16:38 → PHEDA 21:46 → N06 02-10 02:59 → HCPC 02-13 16:36 → HCIS 02-13 18:20 → N07 02-14 19:22
PROVIDERS: ADMIT Colon & Rectal Surgery; ATTEND Colon & Rectal Surgery